=== PATIENT | male | born 1945 | race Hispanic/Latino ===

== ENCOUNTER 2018-11-17 13:19 | Emergency (ER) | payer SELFPAY ==
--- NOTE | 2018-11-17 13:57 | RAD REPORT ---
EXAM DESCRIPTION: Marylou Single View11/17/2018 1:47 pm CLINICAL HISTORY: Chest pain COMPARISON: none FINDINGS: The lungs appear clear of acute infiltrate. The heart is normal size IMPRESSION: No acute abnormalities displayed
--- NOTE | 2018-11-17 14:10 | RAD REPORT ---
EXAM DESCRIPTION: CT - Head Brain Wo Cont - 11/17/2018 1:58 pm CLINICAL HISTORY: numbness/weakness COMPARISON: None TECHNIQUE: Computed axial tomography of the head was obtained. IV contrast was not requested. All CT scans are performed using dose optimization technique as appropriate and may include automated exposure control or mA/KV adjustment according to patient size. FINDINGS: An intracranial bleed is not seen . The ventricles are normal in caliber. 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 Mild low-density areas within periventricular, deep and sub cortical white matter likely represent ischemic changes secondary to small vessel disease. Fluid within the sinuses/ mastoids is not seen. IMPRESSION: No acute intracranial abnormality is seen. If patient's symptoms persist MRI of the bra in would be recommended.
[2018-11-17 14:11] LABS: ALT/SGPT 42 U/L (12-78); AST/SGOT 66 U/L (15-37); Albumin 3.2 g/dL (3.4-5.0); Alkaline Phosphatase 71 U/L (45-117); BUN Blood Urea Nitrogen 19 mg/dL (7-18); Bicarbonate 29 mmol/L (21-32); Bilirubin Direct 0.2 mg/dL (0-0.2); Bilirubin Total 0.4 mg/dL (0.2-1.0); Glucose Level 131 mg/dL (74-106); Magnesium 1.6 mg/dL (1.8-2.4); NT PRO-BNP 66 pg/mL (<125); Potassium 4.1 mmol/L (3.5-5.1); Protein, Total 7.6 g/dL (6.4-8.2); Sodium Level 136 mmol/L (136-145); Troponin (Emerg Dept Use Only) 0.04 ng/mL (0.0-0.045)
[2018-11-17 14:14] LABS: Absolute Monocytes 0.5 K/uL (0.1-1.3); Absolute Neutrophil 2.1 K/uL (1.8-8.0); Basophils % 0.7 % (0-1.3); Eosinophils % 0.8 % (0-4.4); Hematocrit 52.6 % (39.6-49.0); Monocytes % 12.7 % (3.3-12.3); RBC Red Blood Cell Count 5.11 M/uL (4.33-5.43)
[2018-11-17 14:15] LABS: Protime INR 1.02
[2018-11-17] MEDS ORDERED: MAGNESIUM SULFATE 1 gm IVPB 1 GM/100 ML BAG IV ONE (14:45)
[2018-11-17] MEDS ORDERED: NA CHLORIDE 0.9% 1,000 ML ONE (15:25)
--- NOTE | 2018-11-17 15:59 | ER ---
Nurse's Notes [facility] Name: Cristobal Napier Age: 73 yrs Sex: Male : 1945 Arrival Date: 11/17/2018 Time: 13:24 Bed 14 Private MD: Diagnosis: Weakness;Volume depletion Presentation: 11/17 13:16 Presenting complaint: EMS states: Pt. c/o generalized weakness for the past 6 days and rb1 feeling fatigued. Denies pain. BP 126/80, P 88, T 98.0, 99% RA, BS 120. NKA. History of diabetes. Takes Vitamin B shots, Metformin, and VItamin B PO. Onset of symptoms is unknown. Risk Assessment: Do you want to hurt yourself or someone else? Patient reports no desire to harm self or others. Initial Sepsis Screen: Does the patient meet any 2 criteria? No. Patient's initial sepsis screen is negative. Does the patient have a suspected source of infection? No. Patient's initial sepsis screen is negative. Care prior to arrival: None. 13:16 Method Of Arrival: EMS: [facility] 13:16 Acuity: LEO 3 rb1 13:16 Transition of care: patient was not received from another setting of care. rb1 Triage Assessment: 13:16 General: Appears in no apparent distress. comfortable, Behavior is calm, cooperative, rb1 Reports fatigue for x 6 days. Denies fever, feeling ill. Pain: Denies pain. Neuro: Level of Consciousness is awake, alert, obeys commands, Oriented to person, place, time, situation. Neuro: Reports weakness in generalized since x 6 days. Cardiovascular: Capillary refill < 3 seconds is brisk in bilateral fingers. Respiratory: Airway is patent Respiratory effort is even, unlabored, Respiratory pattern is regular, symmetrical. GI: No signs and/or symptoms were reported involving the gastrointestinal system. : No signs and/or symptoms were reported regarding the genitourinary system. Derm: Skin is dry, Skin is normal, Skin temperature is warm. Historical: - Allergies: 13:16 No Known Allergies; rb1 - Home Meds: 13:16 Vitamin B [Active]; rb1 13:16 metformin 1,000 mg oral tab 1 tab 2 times per day [Active]; Vitamin B 12 Shots 1 ml 1 rb1 ml monthly [Active]; cyclobenzaprine 10 mg Oral tab 1 tab 2 times per day [Active]; folic acid 1 mg Oral tab 1 tab once daily [Active]; aspirin 81 mg Oral chew 1 tab once daily [Active]; glipizide 10 mg Oral tab 0.5 tab 2 times per day [Active]; Areds 2 [Active]; - PMHx: 13:16 Diabetes - NIDDM; rb1 - PSHx: 13:16 cataract; Appendectomy; Tonsillectomy; Bullets removed from leg; Dental Implants; rb1 - Immunization history:: Flu vaccine is not up to date. - Social history:: Smoking status: Patient uses tobacco products, smokes one-half pack cigarettes per day. - Ebola Screening: : Patient negative for fever greater than or equal to 101.5 degrees Fahrenheit, and additional compatible Ebola Virus Disease symptoms. Screenin:16 Abuse screen: Denies threats or abuse. Nutritional screening: No deficits noted. rb1 Tuberculosis screening: No symptoms or risk factors identified. Fall Risk No fall in past 12 months (0 pts). Secondary diagnosis (15 points) weakness. IV access (20 points). Ambulatory Aid- None/Bed Rest/Nurse Assist (0 pts). Gait- Weak (10 pts.). Mental Status- Oriented to own ability (0 pts). Total Garber Fall Scale indicates High Risk Score (45 or more points). Fall prevention measures have been instituted. Side Rails Up X 2 Placed Close to Nursing Station 1:1 Attendant Assigned Frequent Obs/Assessments Occuring Family Present and informed to notify staff if the need to leave the bedside As available patient and family educated on Fall Prevention Program and Strategies. Assessment: 13:16 General: See triage assessment. rb1 14:15 Reassessment: Patient appears in no apparent distress at this time. No changes from rb1 previously documented assessment. Family at bedside. 15:15 Reassessment: Patient appears in no apparent distress at this time. Patient and/or rb1 family updated on plan of care and expected duration. Pain level reassessed. Patient is alert, oriented x 3, equal unlabored respirations, skin warm/dry/pink. Patient denies pain at this time. 16:15 Reassessment: Patient appears in no apparent distress at this time. No changes from rb1 previously documented assessment. Discharge pending due to IV fluids infusing. Educated pt. to leave his arm straight, IV was put on a pump to finish the infusion. Provider wants the pt. to receive all the fluids before leaving. Vital Signs: 13:16 BP 133 / 83; Pulse 73; Resp 17; Temp 97.5(O); Pulse Ox 98% on R/A; Weight 62.6 kg (R); rb1 Height 5 ft. 7 in. (170.18 cm) (R); Pain 0/10; 14:34 BP 129 / 82 Supine; Pulse 71; Resp 12; Pulse Ox 99% on R/A; dh3 14:36 BP 112 / 94 Sitting; Pulse 80; Resp 23; Pulse Ox 99% on R/A; dh3 14:38 BP 108 / 74 Standing; Pulse 95; Resp 21; Pulse Ox 98% on R/A; dh3 15:33 BP 120 / 73; Pulse 79; Resp 16; Pulse Ox 99% on R/A; Pain 0/10; rb1 16:30 BP 131 / 88; Pulse 67; Resp 24; Pulse Ox 100% ; rb1 13:16 Body Mass Index 21.61 (62.60 kg, 170.18 cm) rb1 16:30 pt. was laughing and talking with familly rb1 ED Course: 13:16 Arm band placed on right wrist. rb1 13:16 Patient has correct armband on for positive identification. Bed in low position. Call rb1 light in reach. Side rails up X 1. equipment monitor phototypesetting on. Pulse ox on. NIBP on. Warm blanket given. Pillow given. 13:24 Patient arrived in ED. rb1 13:25 [facility]aim[facility] Victoria [facility]C [facility] kb 13:25 Javy Chavez MD is Attending Physician. kb 13:37 Triage completed. rb1 13:39 April Traore, RN is Primary Nurse. rb1 13:41 Initial lab(s) drawn, by ar, sent to lab. Inserted saline lock: 20 gauge in right dh3 antecubital area, using aseptic technique. Blood collected. 13:47 XRAY Chest (1 view) In Process Unspecified. EDMS 13:[address] via stretcher. eh 13:55 CT completed. Patient tolerated procedure well. eh 13:58 CT Head Brain wo Cont In Process Unspecified. EDMS 14:00 Patient moved back from CT. eh 14:32 EKG done, by ED staff, reviewed by Saiam ROLAND. 3 14:44 Flu and/or RSV swab sent to lab. lt1 16:58 No provider procedures requiring assistance completed. IV discontinued, intact, rb1 bleeding controlled, No redness/swelling at site. Pressure dressing applied. Administered Medications: 14:45 Drug: Magnesium Sulfate 1 grams Route: IVPB; Infused Over: 1 hrs; Site: right rb1 antecubital; 15:18 Drug: NS 0.9% 1000 ml Route: IV; Rate: 1000 ml; Site: right antecubital; rb1 16:43 Follow up: IV Status: Completed infusion rb1 Outcome: 15:59 Discharge ordered by . reinaldo 16:58 Patient left the ED. rb1 16:58 Discharged to home via wheelchair, with family. rb1 16:58 Condition: stable 16:58 Discharge instructions given to patient, Instructed on discharge instructions, follow up and referral plans. Demonstrated understanding of instructions, follow-up care, Prescriptions given X none Signatures: Dispatcher [employer] EDMS Saima Victoria, JONATHONC ONLINE MERCHANDISING SPECIALIST-Hakan Calhoun Rebecca, RN RN rb1 Carolin Wiley 3 Teresa Worthy lt1 Corrections: (The following items were deleted from the chart) 14:50 13:16 Allergies: No Known Allergies; rb1 rb1 14:50 13:16 Home Meds: Metformin Oral; rb1 rb1 14:50 13:16 Home Meds: Vitamin B 12 Shots; rb1 rb1 19:38 17:19 Patient left the ED. rb1 rb1
--- NOTE | 2018-11-17 15:59 | EDPHYS ---
Physician Documentation [facility] Name: Cristobal Napier Age: 73 yrs Sex: Male : 1945 Arrival Date: 11/17/2018 Time: 13:24 Bed 14 Private MD: ED Physician Javy Chavez HPI: 11/17 14:56 This 73 yrs old Male presents to ER via EMS with complaints of General kb Weakness. 14:56 The patient presents with generalized weakness. Onset: The symptoms/episode kb began/occurred 7 day(s) ago. Context: occurred at home, occurred while the patient was at rest, just prior to the episode the patient experienced no apparent symptoms. Modifying factors: The symptoms are alleviated by nothing, the symptoms are aggravated by nothing. Associated signs and symptoms: The patient has no apparent associated signs or symptoms. Severity of symptoms: At their worst the symptoms were mild moderate in the emergency department the symptoms are unchanged. Patient's baseline: Neuro: alert and fully oriented, Motor: no deficits, Ambulation: walks without assistance, Speech: normal. The patient has not experienced similar symptoms in the past. The patient has not recently seen a physician. Pt reports weakness for 7 days. Denies any other symptoms including chest pain or shortness of breath. States he feels drunk when he standing up. States he did not want to come to the ER, was going to go [facility] [place] [facility] for symptoms but daughter made him come. . Historical: - Allergies: 13:16 No Known Allergies; rb1 - Home Meds: 13:16 Vitamin B [Active]; rb1 13:16 metformin 1,000 mg oral tab 1 tab 2 times per day [Active]; Vitamin B 12 Shots 1 ml 1 rb1 ml monthly [Active]; cyclobenzaprine 10 mg Oral tab 1 tab 2 times per day [Active]; folic acid 1 mg Oral tab 1 tab once daily [Active]; aspirin 81 mg Oral chew 1 tab once daily [Active]; glipizide 10 mg Oral tab 0.5 tab 2 times per day [Active]; Areds 2 [Active]; - PMHx: 13:16 Diabetes - NIDDM; rb1 - PSHx: 13:16 cataract; Appendectomy; Tonsillectomy; Bullets removed from leg; Dental Implants; rb1 - Immunization history:: Flu vaccine is not up to date. - Social history:: Smoking status: Patient uses tobacco products, smokes one-half pack cigarettes per day. - Ebola Screening: : Patient negative for fever greater than or equal to 101.5 degrees Fahrenheit, and additional compatible Ebola Virus Disease symptoms. ROS: 14:55 Constitutional: Negative for fever, chills, and weight loss, ENT: Negative for injury, kb pain, and discharge, Neck: Negative for injury, pain, and swelling, Cardiovascular: Negative for chest pain, palpitations, and edema, Respiratory: Negative for shortness of breath, cough, wheezing, and pleuritic chest pain, Abdomen/GI: Negative for abdominal pain, nausea, vomiting, diarrhea, and constipation, Back: Negative for injury and pain, MS/Extremity: Negative for injury and deformity, Skin: Negative for injury, rash, and discoloration. 14:55 Neuro: Positive for weakness. Exam: 14:55 Constitutional: This is a well developed, well nourished patient who is awake, alert, kb and in no acute distress. Head/Face: Normocephalic, atraumatic. ENT: Nares patent. No nasal discharge, no septal abnormalities noted. Tympanic membranes are normal and external auditory canals are clear. Oropharynx with no redness, swelling, or masses, exudates, or evidence of obstruction, uvula midline. Mucous membranes moist. Neck: Trachea midline, no thyromegaly or masses palpated, and no cervical lymphadenopathy. Supple, full range of motion without nuchal rigidity, or vertebral point tenderness. No Meningismus. Chest/axilla: Normal chest wall appearance and motion. Nontender with no deformity. No lesions are appreciated. Cardiovascular: Regular rate and rhythm with a normal S1 and S2. No gallops, murmurs, or rubs. Normal PMI, no JVD. No pulse deficits. Respiratory: Lungs have equal breath sounds bilaterally, clear to auscultation and percussion. No rales, rhonchi or wheezes noted. No increased work of breathing, no retractions or nasal flaring. Abdomen/GI: Soft, non-tender, with normal bowel sounds. No distension or tympany. No guarding or rebound. No evidence of tenderness throughout. Skin: Warm, dry with normal turgor. Normal color with no rashes, no lesions, and no evidence of cellulitis. MS/ Extremity: Pulses equal, no cyanosis. Neurovascular intact. Full, normal range of motion. Neuro: Awake and alert, GCS 15, oriented to person, place, time, and situation. Cranial nerves II-XII grossly intact. Motor strength 5/5 in all extremities. Sensory grossly intact. Cerebellar exam normal. Normal gait. Vital Signs: 13:16 BP 133 / 83; Pulse 73; Resp 17; Temp 97.5(O); Pulse Ox 98% on R/A; Weight 62.6 kg (R); rb1 Height 5 ft. 7 in. (170.18 cm) (R); Pain 0/10; 14:34 BP 129 / 82 Supine; Pulse 71; Resp 12; Pulse Ox 99% on R/A; dh3 14:36 BP 112 / 94 Sitting; Pulse 80; Resp 23; Pulse Ox 99% on R/A; dh3 14:38 BP 108 / 74 Standing; Pulse 95; Resp 21; Pulse Ox 98% on R/A; dh3 15:33 BP 120 / 73; Pulse 79; Resp 16; Pulse Ox 99% on R/A; Pain 0/10; rb1 16:30 BP 131 / 88; Pulse 67; Resp 24; Pulse Ox 100% ; rb1 13:16 Body Mass Index 21.61 (62.60 kg, 170.18 cm) rb1 16:30 pt. was laughing and talking with familly rb1 MDM: 13:25 Patient medically screened. kb 14:55 Data reviewed: vital signs, nurses notes. Data interpreted: Pulse oximetry: on room air kb is 98 %. Interpretation: normal. Counseling: I had a detailed discussion with the patient and/or guardian regarding: the historical points, exam findings, and any diagnostic results supporting the discharge/admit diagnosis, lab results, radiology results, the need for outpatient follow up, a family practitioner, to return to the emergency department if symptoms worsen or persist or if there are any questions or concerns that arise at home. 11/17 13:26 Order name: Basic Metabolic Panel; Complete Time: 14:12 kb 11/17 13:26 Order name: CBC with Diff; Complete Time: 14:34 kb 11/17 13:26 Order name: LFT's; Complete Time: 14:12 kb 11/17 13:26 Order name: Magnesium; Complete Time: 14:12 kb 11/17 13:26 Order name: NT PRO-BNP; Complete Time: 14:12 kb 11/17 13:26 Order name: PT-INR; Complete Time: 14:34 kb 11/17 13:26 Order name: Troponin (emerg Dept Use Only); Complete Time: 14:12 kb 11/17 13:26 Order name: XRAY Chest (1 view); Complete Time: 14:03 kb 11/17 13:26 Order name: EKG; Complete Time: 13:27 kb 11/17 13:26 Order name: Cardiac monitoring; Complete Time: 14:48 kb 11/17 13:26 Order name: CT Head Brain wo Cont; Complete Time: 14:12 kb 11/17 14:12 Order name: Flu; Complete Time: 15:09 kb 11/17 13:26 Order name: EKG - Nurse/Tech; Complete Time: 14:48 kb 11/17 13:26 Order name: IV Saline Lock; Complete Time: 13:44 kb 11/17 13:26 Order name: Labs collected and sent; Complete Time: 13:44 kb 11/17 13:26 Order name: O2 Per Protocol; Complete Time: 13:44 kb 11/17 13:26 Order name: O2 Sat Monitoring; Complete Time: 13:44 kb 11/17 13:26 Order name: Orthostatics; Complete Time: 14:48 kb Administered Medications: 14:45 Drug: Magnesium Sulfate 1 grams Route: IVPB; Infused Over: 1 hrs; Site: right rb1 antecubital; 15:18 Drug: NS 0.9% 1000 ml Route: IV; Rate: 1000 ml; Site: right antecubital; rb1 16:43 Follow up: IV Status: Completed infusion rb1 Disposition: 17:27 Co-signature as Attending Physician, Javy Chavez MD. rn Disposition: 11/17/18 15:59 Discharged to Home. Impression: Weakness, Volume depletion. - Condition is Stable. - Discharge Instructions: Weakness, [id number], Dehydration, Adult, [id number]. - Medication Reconciliation Form, Thank You Letter, Antibiotic Education, Prescription Opioid Use form. - Follow up: Private Physician; When: 2 - 3 days; Reason: Recheck today's complaints, Continuance of care, Re-evaluation by your physician. Follow up: Emergency Department; When: As needed; Reason: Worsening of condition. Signatures: Dispatcher [employer] EDMS Saima Victoria, CHIEF SPECIALIST LEED-C CHIEF SPECIALIST LEED-Ckb Javy Chavez MD MD rn Barber, Rebecca, RN RN rb1 Corrections: (The following items were deleted from the chart) 14:50 13:16 Allergies: No Known Allergies; rb1 rb1 14:50 13:16 Home Meds: Metformin Oral; rb1 rb1 14:50 13:16 Home Meds: Vitamin B 12 Shots; rb1 rb1 17:19 15:59 11/17/2018 15:59 Discharged to Home. Impression: Weakness; Volume depletion. rb1 Condition is Stable. Discharge Instructions: Weakness, Kxnc-ys-[id number], Dehydration, Adult, Xhpg-[id number]. Forms are Medication Reconciliation Form, Thank You Letter, Antibiotic Education, Prescription Opioid Use. Follow up: Private Physician; When: 2 - 3 days; Reason: Recheck today's complaints, Continuance of care, Re-evaluation by your physician. Follow up: Emergency Department; When: As needed; Reason: Worsening of condition. kb
--- NOTE | 2018-11-18 10:55 | EKG ---
Test Date: 2018-11-17 Test Time: 14:29:26 Boring And Filling Machine Operator: NANCY MEASUREMENT RESULTS: Intervals: Rate: 71 IN: 132 QRSD: 88 QT: 412 QTc: 447 [place]: P: 16 IN: 132 QRS: 100 T: 76 INTERPRETIVE STATEMENTS: Normal sinus rhythm Rightward axis Borderline ECG Compared to ECG 10/20/1993 04:01:00 Right-axis deviation now present Sinus bradycardia no longer present Electronically Signed On 11-18-18 10:53:46 WAITER/WAITRESS BAR by Tommy Ba
== END 2018-11-17 17:19 | disposition home or self-care (01) ==
LOC: ER 13:19
DX: E86.9 Volume depletion, unspecified (principal); R53.1 Weakness; E11.9 Type 2 diabetes mellitus without complications; F17.210 Nicotine dependence, cigarettes, uncomplicated; Z79.84 Long term (current) use of oral hypoglycemic drugs; Z79.82 Long term (current) use of aspirin; Z79.899 Other long term (current) drug therapy
CPT/HCPCS: 36415; 70450; 71045; 80048; 80076; 83735; 83880; 84484; 85025; 85610; 87804; 93005; 96361; 96374; 99285; J3475; J7030

== ENCOUNTER 2019-09-23 09:42 | Emergency (ER) | payer OTHER, SELFPAY ==
[2019-09-23] MEDS ORDERED: HYDROCODONE/APAP 5/325 MG TAB ONE (10:53)
--- NOTE | 2019-09-23 11:30 | RAD REPORT ---
EXAM DESCRIPTION: RAD - Elbow Left 3 View - 09/23/2019 11:18 am CLINICAL HISTORY: fall Fall, elbow pain COMPARISON: No comparisons FINDINGS: Transverse lucency is seen affecting the distal aspect of the humeral metaphysis with surr ounding soft tissue swelling, likely representing nondisplaced fracture. The bones are quite osteopen ic. No dislocation.
--- NOTE | 2019-09-23 11:48 | ER ---
Nurse's Notes [facility] Name: Cristobal Napier Age: 74 yrs Sex: Male : 1945 Arrival Date: 09/23/2019 Time: 09:45 Bed 19 Private MD: Diagnosis: Left Distal Humerus Fracture Presentation: 09/23 10:04 Presenting complaint: Left arm pain after fall from porch swing yesterday. Transition hb of care: patient was not received from another setting of care. Onset of symptoms was September 22, 2019. Risk Assessment: Do you want to hurt yourself or someone else? Patient reports no desire to harm self or others. Initial Sepsis Screen: Does the patient meet any 2 criteria? No. Patient's initial sepsis screen is negative. Does the patient have a suspected source of infection? No. Patient's initial sepsis screen is negative. Care prior to arrival: None. 10:04 Method Of Arrival: Ambulatory hb 10:04 Acuity: LEO 4 hb Historical: - Allergies: 10:06 No Known Allergies; hb - PMHx: 10:06 Diabetes - NIDDM; hb - PSHx: 10:06 cataract; Appendectomy; Tonsillectomy; Bullets removed from leg; Dental Implants; hb - Immunization history:: Adult Immunizations up to date. - Social history:: Smoking status: Patient uses tobacco products, smokes one-half pack cigarettes per day. - Ebola Screening: : No symptoms or risks identified at this time. Screenin:15 Abuse screen: Denies threats or abuse. Denies injuries from another. Nutritional ca1 screening: No deficits noted. Tuberculosis screening: No symptoms or risk factors identified. Fall Risk Fall in past 12 months (25 points). Ambulatory Aid- Crutches/Cane/Walker (15 pts). Assessment: 10:15 General: Appears in no apparent distress. comfortable, Behavior is calm, cooperative, ca1 appropriate for age. Pain: Complains of pain in left arm Pain currently is 10 out of 10 on a pain scale. Pain began 1 day ago. Neuro: Level of Consciousness is awake, alert, obeys commands, Oriented to person, place, time, situation, Appropriate for age. Cardiovascular: Heart tones S1 S2 present Capillary refill < 3 seconds Patient's skin is warm and dry. Respiratory: Airway is patent Respiratory effort is even, unlabored, Respiratory pattern is regular, symmetrical. GI: Abdomen is flat, non-distended, Bowel sounds present X 4 quads. Abd is soft and non tender X 4 quads. : No deficits noted. No signs and/or symptoms were reported regarding the genitourinary system. EENT: No deficits noted. No signs and/or symptoms were reported regarding the EENT system. Derm: Skin is intact, is healthy with good turgor, Skin is pink, warm \T\ dry. Musculoskeletal: Circulation, motion, and sensation intact. Capillary refill < 3 seconds, Range of motion: limited in left shoulder, left elbow and left wrist Swelling present in left hand. Injury Description: Abrasion sustained to face and left hand is scabbed, was sustained 1 day ago. 10:56 Reassessment: Xray at the bedside. ca1 11:30 Reassessment: Patient appears in no apparent distress at this time. Patient is alert, ca1 oriented x 3, equal unlabored respirations, skin warm/dry/pink. 12:23 Reassessment: Patient appears in no apparent distress at this time. Patient is alert, ca1 oriented x 3, equal unlabored respirations, skin warm/dry/pink. Vital Signs: 10:06 BP 139 / 96; Pulse 75; Resp 16; Temp 97.2; Pulse Ox 100% on R/A; Weight 58.97 kg; hb Height 5 ft. 7 in. (170.18 cm); Pain 10/10; 12:23 BP 134 / 89; Pulse 81; Resp 16 S; Pulse Ox 100% on R/A; ca1 10:06 Body Mass Index 20.36 (58.97 kg, 170.18 cm) ED Course: 09:45 Patient arrived in ED. rg4 10:05 Triage completed. hb 10:06 Nayeli Wade, RN is Primary Nurse. ca1 10:06 Arm band placed on. hb 10:07 Erick Byrne PA is PHCP. jmm 10:07 John Parker MD is Attending Physician. jmm 10:15 Patient has correct armband on for positive identification. Bed in low position. Call ca1 light in reach. Side rails up X 1. Pulse ox on. NIBP on. 10:15 No provider procedures requiring assistance completed. Patient did not have IV access ca1 during this emergency room visit. 11:27 X-ray completed. Portable x-ray completed in exam room. Patient tolerated procedure mh1 well. 11:40 Michael Wong MD is Referral Physician. frances 12:00 Orthoglass splint: posterior long arm splint applied to the left arm. capillary refill dh3 <3 seconds, viewed by Erick PEDRO. 12:00 Sling applied to left arm. dh3 Administered Medications: 10:51 Drug: [place] 5 mg-325 mg 1 tabs {Note: RASS - 0.} Route: PO; ca1 12:22 Follow up: Response: No adverse reaction; Pain is decreased; RASS: Alert and Calm (0) ca1 Outcome: 11:41 Discharge ordered by . frances 12:23 Discharged to home ambulatory, with significant other. ca1 12:23 Condition: stable 12:23 Discharge instructions given to patient, Instructed on discharge instructions, follow up and referral plans. medication usage, Demonstrated understanding of instructions, follow-up care, medications, Prescriptions given X 1. 12:24 Patient left the ED. ca1 Signatures: Erick Byrne PA PA jmm Harvey, Martha 1 Sheila Strong, RN RN Mariluz Fraser 4 Carolin Wiley 3 Nayeli Wade RN RN ca1
--- NOTE | 2019-09-23 11:48 | EDPHYS ---
Physician Documentation [facility] Name: Cristobal Napier Age: 74 yrs Sex: Male : 1945 Arrival Date: 09/23/2019 Time: 09:45 Bed 19 Private MD: ED Physician John Parker HPI: 09/23 10:12 This 74 yrs old Male presents to ER via Ambulatory with complaints of Arm jmm Injury. 10:12 The patient or guardian complains of injury, pain. Onset: The symptoms/episode jmm began/occurred acutely, 1 day(s) ago. Associated signs and symptoms: Pertinent positives: pain. This is a 74 year old male with a history of DM, that presents to the ED with complaints of left elbow pain. patient states he jumped off a swing and landed with his hands clinched against the concrete. Abrasions noted to the hands, but patient denies pain to the hand. . Historical: - Allergies: 10:06 No Known Allergies; hb - PMHx: 10:06 Diabetes - NIDDM; hb - PSHx: 10:06 cataract; Appendectomy; Tonsillectomy; Bullets removed from leg; Dental Implants; hb - Immunization history:: Adult Immunizations up to date. - Social history:: Smoking status: Patient uses tobacco products, smokes one-half pack cigarettes per day. - Ebola Screening: : No symptoms or risks identified at this time. ROS: 10:12 Constitutional: Negative for fever, chills, and weight loss, Cardiovascular: Negative jmm for chest pain, palpitations, and edema, Respiratory: Negative for shortness of breath, cough, wheezing, and pleuritic chest pain, Abdomen/GI: Negative for abdominal pain, nausea, vomiting, diarrhea, and constipation. 10:12 MS/extremity: Positive for pain. 10:12 All other systems are negative. Exam: 10:12 Head/Face: atraumatic. Eyes: EOMI, no conjunctival erythema appreciated ENT: Moist jmm Mucus Membranes Neck: Trachea midline, Supple Chest/axilla: Normal chest wall appearance and motion. Cardiovascular: Regular rate and rhythm. No edema appreciated Respiratory: Normal respirations, no respiratory distress appreciated Abdomen/GI: Non distended, soft Back: Normal ROM 10:12 Constitutional: The patient appears in no acute distress, alert, awake. 10:12 Musculoskeletal/extremity: painful ROM noted to the left elbow, no obvious deformity appreciated, full radial pulse, compartments are soft, NVI. 10:12 Skin: abrasions noted to the left hand. 10:12 Neuro: Orientation: is normal, Mentation: is normal, Memory: is normal. 10:12 Psych: Behavior/mood is pleasant, cooperative. Vital Signs: 10:06 BP 139 / 96; Pulse 75; Resp 16; Temp 97.2; Pulse Ox 100% on R/A; Weight 58.97 kg; hb Height 5 ft. 7 in. (170.18 cm); Pain 10/10; 12:23 BP 134 / 89; Pulse 81; Resp 16 S; Pulse Ox 100% on R/A; ca1 10:06 Body Mass Index 20.36 (58.97 kg, 170.18 cm) hb Procedures: 11:39 Splinting: Splint applied to left arm using Orthoglass splint, applied by tech. mike Examined by me, post splint application: neurovascular intact, 2+ distal pulses palpable, brisk capillary refill noted, Patient tolerated well. MDM: 10:12 Patient medically screened. [facility] 11:39 Data reviewed: vital signs, nurses notes. Counseling: I had a detailed discussion with frances the patient and/or guardian regarding: the historical points, exam findings, and any diagnostic results supporting the discharge/admit diagnosis, radiology results, the need for outpatient follow up, to return to the emergency department if symptoms worsen or persist or if there are any questions or concerns that arise at home. ED course: Patient advised to follow up with ortho for reevaluation. patient given strict return precautions. patient understood and agrees with the plan of care. . 09/23 10:18 Order name: Elbow Left 3 View XRAY [facility] 09/23 11:31 Order name: RAD; Complete Time: 11:33 EDMS 09/23 11:14 Order name: Posterior Elbow Splint; Complete Time: 12:11 [facility] Administered Medications: 10:51 Drug: [place] 5 mg-325 mg 1 tabs {Note: RASS - 0.} Route: PO; ca1 12:22 Follow up: Response: No adverse reaction; Pain is decreased; RASS: Alert and Calm (0) ca1 Disposition: 15:19 Co-signature as Attending Physician, John Parker MD I agree with the assessment and eulogio plan of care. Disposition: 09/23/19 11:41 Discharged to Home. Impression: Left Distal Humerus Fracture. - Condition is Stable. - Discharge Instructions: Humerus Fracture Treated With Immobilization. - Prescriptions for Ultracet 37.5- 325 mg Oral Tablet - take 1 tablet by ORAL route every 6 hours - for up to 5 days; do not exceed 8 tablets per day.; 12 tablet. - Medication Reconciliation Form, Thank You Letter, Antibiotic Education, Prescription Opioid Use form. - Follow up: Michael Wong MD; When: 2 - 3 days; Reason: Recheck today's complaints, Continuance of care, Re-evaluation by your physician. Signatures: Dispatcher [employer] EDMS John Parker MD MD cha Mickail, Joel, PA PA jmm Baxter, Heather, RN RN hb Nayeli Wade RN RN ca1 Corrections: (The following items were deleted from the chart) 12:24 11:41 09/23/2019 11:41 Discharged to Home. Impression: Left Distal Humerus Fracture. ca1 Condition is Stable. Forms are Medication Reconciliation Form, Thank You Letter, Antibiotic Education, Prescription Opioid Use. Follow up: Dr. Michael Wong; When: 2 - 3 days; Reason: Recheck today's complaints, Continuance of care, Re-evaluation by your physician. frances
[2019-09-23 12:31] VITALS: TEMP 97.2; O2SAT 100
[2019-09-23 12:32] VITALS: BP 134/89
== END 2019-09-23 12:24 | disposition home or self-care (01) ==
LOC: ER 09:42
PROC: 2W39X1Z Immobilization of Left Upper Extremity using Splint (ICD-10-PCS; principal; 2019-09-23)
DX: S42.402A Unspecified fracture of lower end of left humerus, initial encounter for closed fracture (principal); W09.1XXA Fall from playground swing, initial encounter; Y93.89 Activity, other specified; Y92.89 Other specified places as the place of occurrence of the external cause; F17.210 Nicotine dependence, cigarettes, uncomplicated; E11.9 Type 2 diabetes mellitus without complications
CPT/HCPCS: 99284

== ENCOUNTER 2020-01-14 14:21 | Emergency (ER) | payer OTHER ==
[2020-01-14 15:55] VITALS: BP 135/68; TEMP 98.2; O2SAT 99
== END 2020-01-14 15:50 | disposition home or self-care (01) ==
LOC: ER 14:21
DX: R73.9 Hyperglycemia, unspecified (principal); Z72.0 Tobacco use
CPT/HCPCS: 36415; 80048; 80076; 82947; 85025; 99283

== ENCOUNTER 2024-07-20 15:18 | Emergency (ER) | payer OTHER ==
--- OUTSIDE RECORDS SUMMARY | 2024-07-20 15:20 | XMS REPORT | Continuity of Care Document ---
Author Name Unknown Address [address] [place] [address] thconnect Address [address] [facility] [address] [place] [address] Care Team Providers Care Call Center Specialist Name Role Phone CHUN ALEXANDRA Attending Clinician Edin fuller Doctor Unassigned, [place] Attending Clinician U neelima Adkins MD, Shiva Leonardo Attending Clinician Payers Payer Name Policy Type Policy Number Effective Date Expirati on Date Source [employer] [id number] Allergies, Adverse Reactions, Alerts Allergy Name Allergy Type Status Severity Reaction(s) Onset Date Inactive Date Treating Clinician Comments Source NO KNOWN ALLERGIE S Drug Class Active [facility] Social History Social Habit Start Date Stop Date Quantity Comments Source Sex Assigned At [facility] Smoking Status Start Date Stop Date Source Unknown if ever smoked Unive [facility] Procedures Procedure Date / Time Performed Performing Clinicia n Source ASSIGNMENT OF BENEFITS 2020-10-13 14:20:10 Docto r Unassigned, [place] [facility] REFERRAL- REQUEST/RESPONSE 2020-10-05 06:01:00 Doctor Unassigned, [place] [facility] Encounters Start Date/Time End Date/Time Encounter Type Admission Type Attending Clinicians Care Facility Care Department Encounter ID Source 2020-10-13 08:00:00 2020-10-13 08:00:00 Outpatient R CHUN ALEXANDRA [facility] [id number] [facility] 2020-10-13 00:00:00 2020-10-13 00:00:00 Orders Only Doctor Unassigned, [place] [facility] [id number] [facility] 2020-10-05 00:00:00 2020-10-05 00:00:00 Orders Only Doctor Unassigned, [place] [facility] [id number] [facility] 2019-09-25 13:00:00 2019-09-25 13:15:00 Office Visit Shiva Adkins [facility] [id number] [facility]
[2024-07-20] MEDS ORDERED: NA CHLORIDE 0.9% 1,000 ML ONE (15:36)
[2024-07-20 16:02] LABS: Absolute Lymphocytes (CBC) 0.3 K/uL (0.7-4.9); Absolute Monocytes 0.2 K/uL (0.1-1.3); Absolute Neutrophil 8.2 K/uL (1.8-8.0); Basophils % 0.3 % (0-1.3); Hemoglobin 16.1 g/dL (13.6-17.9); Lymphocytes % 2.9 % (15.3-44.8); MCH 33.8 pg (27.0-35.0); MCHC 34.3 g/dL (32.0-36.0); MCV 98.5 fL (80-100); MPV 7.5 fL (7.6-11.3); Monocytes % 2.2 % (3.3-12.3); Neutrophils % 94.6 % (41.7-73.7); Platelets 207 thou/uL (152-406); RBC Red Blood Cell Count 4.77 M/uL (4.33-5.43); Red Cell Distribution Width 13.4 % (12.1-15.2)
[2024-07-20 16:22] LABS: Albumin 3.6 g/dL (3.4-5.0); Albumin/Globulin Ratio 0.9 (1.1-1.8); Anion Gap 10.3 mEq/L (5.0-15.0); Bilirubin Direct 0.3 mg/dL (0-0.2); Bilirubin Indirect, Calculated 0.7 mg/dL (0.2-0.8); Globulin 3.9 g/dL (2.3-3.5); Potassium 4.3 mEq/L (3.5-5.1); Protein, Total 7.5 g/dL (6.4-8.2); Troponin High Sensitivity 20.4 pg/mL (<58.9)
--- NOTE | 2024-07-20 16:31 | RAD REPORT ---
EXAM: CT brain without contrast HISTORY: GLF COMPARISON: None TECHNIQUE: Multiple contiguous axial images were obtained and a CT of the brain without contrast. Sag ittal and coronal reformats were performed. One or more of the following dose reduction techniques were used: Automated exposure control, adjust ment of the mA and/or kV according to patient size, and/or iterative reconstruction. FINDINGS: No evidence of hydrocephalus, intracranial hemorrhage, or extra-axial fluid collection. Mild brain atrophy with mild periventricular and deep white matter chronic microvascular ischemic ch anges present. No evidence of midline shift or areas of brain edema. The calvarium is intact. The visualized paranasal sinuses and mastoid air cells are essentially clear . IMPRESSION: No evidence of acute intracranial abnormality. EXAM: CT of the cervical spine without contrast HISTORY: Neck pain, injury GLF COMPARISON: None TECHNIQUE: Multiple contiguous axial images were obtained in a CT of the cervical spine without contr ast. Sagittal and coronal reformats were performed. FINDINGS: The vertebral bodies demonstrate normal height and alignment. No evidence of acute fracture or subluxation.. [id number]-[id number]-dwhyxkia multilevel mid and lower cervical degenerative changes. No prevertebral soft tissue swelling is seen. The posterior facets are well aligned. Normal alignment of the skull base with the cervical spine is seen. The lung apices are unremarkable. IMPRESSION: No evidence of acute osseous abnormality of the cervical spine.
--- NOTE | 2024-07-20 16:36 | RAD REPORT ---
EXAMINATION: ONE VIEW CHEST XR CLINICAL INDICATION: fall TECHNIQUE: Frontal chest projection is submitted. Examination is limited by patient positioning and t echnique. COMPARISON: 11/17/2018 FINDINGS: The lungs are diffusely emphysematous but grossly clear. The heart is upper limit of normal in size. No displaced fractures identified. IMPRESSION: COPD without an acute process suspected.
--- NOTE | 2024-07-20 17:03 | ER ---
Nurse's Notes [facility] Name: Cristobal Napier Age: 78 yrs Sex: Male : 1945 Arrival Date: 07/20/2024 Time: 15:18 Bed 15 Private MD: Diagnosis: Weakness;Other specified injuries of neck Presentation: 07/20 15:29 Chief complaint: Patient states: he fell while going outside to smoke a cigarette. kc6 cannot remember if he had LOC or hit his head. (-) blood thinners. pt reports neck pain. Coronavirus screen: At this time, the client does not indicate any symptoms associated with coronavirus-19. Ebola Screen: No symptoms or risks identified at this time. Initial Sepsis Screen: Does the patient meet any 2 criteria? HR > 90 bpm. Does the patient have a suspected source of infection? No. Patient's initial sepsis screen is negative. Risk Assessment: Do you want to hurt yourself or someone else? Patient reports no desire to harm self or others. Onset of symptoms was July 20, 2024. 15:29 Method Of Arrival: EMS: [facility] 15:29 Acuity: LEO 3 kc6 Triage Assessment: 15:30 General: Appears in no apparent distress. comfortable, well groomed, well developed, kc6 Behavior is calm, cooperative, appropriate for age. Pain: Complains of pain in posterior cervical area. EENT: No signs and/or symptoms were reported regarding the EENT system. Neuro: Level of Consciousness is awake, alert, obeys commands, Oriented to person, place, time, situation, Appropriate for age. Cardiovascular: Denies chest pain, shortness of breath, Capillary refill < 3 seconds Rhythm is sinus tachycardia. Respiratory: Airway is patent Trachea midline Respiratory effort is even, unlabored, Respiratory pattern is regular, symmetrical. GI: Reports anorexia. : No signs and/or symptoms were reported regarding the genitourinary system. Derm: No signs and/or symptoms reported regarding the dermatologic system. Skin is intact, is healthy with good turgor, Skin is pink, warm \T\ dry. Musculoskeletal: No signs and/or symptoms reported regarding the musculoskeletal system. Circulation, motion, and sensation intact. Capillary refill < 3 seconds, Range of motion: intact in all extremities. Historical: - Allergies: 15:30 No Known Allergies; kc6 - PMHx: 15:30 Diabetes - NIDDM; kc6 - Immunization history:: Adult Immunizations up to date. - Infectious Disease History:: Denies. - Social history:: Smoking status: Patient reports the use of cigarette tobacco products, denies chronic smoking, but will smoke occasionally. Screenin:32 [facility] ED Fall Risk Assessment (Adult) History of falling in the last 3 months, kc6 including since admission Yes- fall prone (multiple falls) (3 pts) Confusion or Disorientation No (0 pts) Intoxicated or Sedated No (0 pts) Impaired Gait Yes (1 pt) Mobility Assist Device Used Yes (1 pt) Altered Elimination No (0 pt) Score/Fall Risk Level 3 or more points = High Risk Oriented to surroundings, Maintained a safe environment, Educated pt \T\ family on fall prevention, incl call for assistance when getting out of bed. Abuse screen: Denies threats or abuse. Denies injuries from another. Nutritional screening: No deficits noted. Tuberculosis screening: No symptoms or risk factors identified. Assessment: 15:32 Reassessment: please see triage. kc6 16:09 Reassessment: to CT via stretcher. ll1 16:24 Reassessment: No changes from previously documented assessment. Patient and/or family ll1 updated on plan of care and expected duration. Pain level reassessed. back from CT. 16:34 Reassessment: No changes from previously documented assessment. Patient and/or family ll1 updated on plan of care and expected duration. Pain level reassessed. 16:53 Reassessment: Patient appears in no apparent distress at this time. No changes from [facility] previously documented assessment. Patient and/or family updated on plan of care and expected duration. Pain level reassessed. Patient is alert, oriented x 3, equal unlabored respirations, skin warm/dry/pink. Vital Signs: 15:29 BP 114 / 81; Pulse 114; Resp 18 S; Temp 98.6(O); Pulse Ox 96% on R/A; Weight 63.5 kg kc6 (M); Height 5 ft. 7 in. (R); 15:56 BP 110 / 74; Pulse 108; Resp 20 S; Pulse Ox 96% on R/A; kc6 16:33 BP 108 / 72; Pulse 92; Resp 18; Pulse Ox 99% ; ll1 16:54 BP 117 / 68; Pulse 85; Resp 17 S; Pulse Ox 99% on R/A; kc6 15:29 Body Mass Index 21.93 (63.50 kg, 170.18 cm) kc6 ED Course: 15:23 Patient arrived in ED. ec2 15:23 Stef Herbert MD is Attending Physician. ec2 15:29 Marley Fall RN is Primary Nurse. kc6 15:30 Triage completed. kc6 15:30 Arm band placed on. kc6 15:32 Patient has correct armband on for positive identification. Bed in low position. Call kc6 light in reach. Side rails up X2. drafter apprentice on. Pulse ox on. NIBP on. Door closed. Noise minimized. Lights dimmed. Pillow given. 15:32 Patient maintains SpO2 saturation greater than 95% on room air. kc6 15:55 Inserted saline lock: 20 gauge in right forearm, using aseptic technique. Blood kc6 collected. Flushed with 10 mL NS. 16:19 CT Head C Spine In Process Unspecified. EDMS 16:33 XRAY Chest (1 view) In Process Unspecified. EDMS 17:28 No provider procedures requiring assistance completed. IV discontinued, intact, kc6 bleeding controlled, No redness/swelling at site. Pressure dressing applied. Administered Medications: 15:55 Drug: NS 0.9% IV 1000 ml IV at 1 bolus Per protocol; to be given as a bolus over 60 kc6 minutes Route: IV; Rate: 1 bolus; Site: right forearm; 17:27 Follow up: Response: No adverse reaction; IV Status: Completed infusion; IV Intake: kc6 1000ml Medication: 17:28 VIS not applicable for this client. kc6 Intake: 17:27 IV: 1000ml; Total: 1000ml. kc6 Outcome: 17:02 Discharge ordered by . ec2 17:28 Discharged to home via wheelchair, with family, with significant other, kc6 17:28 Condition: good 17:28 Discharge instructions given to patient, family, significant other, Instructed on discharge instructions, follow up and referral plans. Demonstrated understanding of instructions, follow-up care, 17:28 Patient left the ED. kc6 Signatures: Dispatcher [employer] EDMS Jeniffer Palmer RN RN 1 Marley Fall RN RN kc6 Herbert, Stef, MD MD ec2
--- NOTE | 2024-07-20 17:03 | EDPHYS ---
Physician Documentation [facility] Name: Cristobal Napier Age: 78 yrs Sex: Male : 1945 Arrival Date: 07/20/2024 Time: 15:18 Bed 15 Private MD: ED Physician Stef Herbert HPI: 07/20 15:43 This 78 yrs old Male presents to ER via EMS with complaints of Fall Injury. ec2 15:43 Patient arrives today for evaluation of recurrent falls and neck pain. Patient also ec2 with generalized weakness. Patient reports no recent illnesses, no fevers or chills, no nausea or vomiting. Patient states that he has frequent falls and the fall aspect is not new.. Historical: - Allergies: 15:30 No Known Allergies; kc6 - PMHx: 15:30 Diabetes - NIDDM; kc6 - Immunization history:: Adult Immunizations up to date. - Infectious Disease History:: Denies. - Social history:: Smoking status: Patient reports the use of cigarette tobacco products, denies chronic smoking, but will smoke occasionally. ROS: 15:43 Constitutional: as per hpi ec2 Exam: 15:43 Constitutional: GEN: NAD Head: atraumatic Eyes: EOMI Ears: External ears are ec2 normal. CV: Tachycardia LUNGS: no respiratory distress ABD: non-distended, soft, nontender, not guarding, not rigid SKIN: no evidence of rashes MSK: no evidence of trauma Vital Signs: 15:29 BP 114 / 81; Pulse 114; Resp 18 S; Temp 98.6(O); Pulse Ox 96% on R/A; Weight 63.5 kg kc6 (M); Height 5 ft. 7 in. (R); 15:56 BP 110 / 74; Pulse 108; Resp 20 S; Pulse Ox 96% on R/A; kc6 16:33 BP 108 / 72; Pulse 92; Resp 18; Pulse Ox 99% ; ll1 16:54 BP 117 / 68; Pulse 85; Resp 17 S; Pulse Ox 99% on R/A; kc6 15:29 Body Mass Index 21.93 (63.50 kg, 170.18 cm) kc6 MDM: 15:43 Data reviewed: vital signs. ED course: Patient arrives today for evaluation of ec2 generalized weakness as well as recurrent falls. Examination remarkable for well-appearing nontoxic individuals otherwise in no acute distress. Will obtain CT scan of the head and C-spine given the patient's age. Will obtain lab work as well given the patient's tachycardia. . 15:59 ED course: EKG independently reviewed and interpreted by me, shows sinus tachycardia, ec2 rate 109, no acute ST segment elevations, intervals are nonactionable. . 16:28 ED course: Metabolic profile is reassuring. CBC reassuring. LFTs are nonactionable. ec2 Troponin within normal ranges. . 17:01 ED course: Chest x-ray shows no acute intrathoracic process. CT scan of the head and ec2 C-spine shows no acute traumatic process. On reassessment patient with improving tachycardia. Patient without any new complaints or evidence of acute pathology. Will discharge home. Return precautions given. . 17:02 Patient medically screened. ec2 10 15:32 Order name: Basic Metabolic Panel; Complete Time: 16:28 ec2 07/20 15:32 Order name: CBC with Diff; Complete Time: 16:28 ec2 07/20 15:32 Order name: Troponin HS; Complete Time: 16:28 ec2 07/20 15:32 Order name: LFT's; Complete Time: 16:28 ec2 07/20 15:32 Order name: XRAY Chest (1 view); Complete Time: 17:01 ec2 07/20 15:32 Order name: CT Head C Spine; Complete Time: 17:01 ec2 07/20 15:32 Order name: EKG; Complete Time: 15:33 ec2 07/20 15:32 Order name: Cardiac monitoring; Complete Time: 15:37 ec2 07/20 15:32 Order name: EKG - Nurse/Tech; Complete Time: 15:55 ec2 07/20 15:32 Order name: IV Saline Lock; Complete Time: 15:55 ec2 07/20 15:32 Order name: Labs collected and sent; Complete Time: 15:55 ec2 07/20 15:32 Order name: O2 Per Protocol; Complete Time: 15:37 ec2 07/20 15:32 Order name: O2 Sat Monitoring; Complete Time: 15:37 ec2 07/20 16:29 Order name: Vital Signs; Complete Time: 16:34 ec2 Administered Medications: 15:55 Drug: NS 0.9% IV 1000 ml IV at 1 bolus Per protocol; to be given as a bolus over 60 kc6 minutes Route: IV; Rate: 1 bolus; Site: right forearm; 17:27 Follow up: Response: No adverse reaction; IV Status: Completed infusion; IV Intake: kc6 1000ml Disposition Summary: 07/20/24 17:02 Discharge Ordered Notes: Location: Home ec2 Condition: Stable ec2 Diagnosis - Weakness ec2 - Other specified injuries of neck ec2 Followup: ec2 - With: Private Physician - When: - Reason: Re-evaluation by your physician Discharge Instructions: - Discharge Summary Sheet ec2 - Weakness ec2 Forms: - Medication Reconciliation Form ec2 - Antibiotic Education ec2 - Prescription Opioid Use ec2 - Patient Portal Instructions ec2 - Leadership Thank You Letter ec2 Signatures: Dispatcher [employer] Marley Woods RN RN kc6 Stef Herbert MD MD ec2 Corrections: (The following items were deleted from the chart) 15:33 15:33 BASIC METABOLIC PANEL+C.LAB.BRZ ordered. EDMS EDMS 15:33 15:33 CBC+H.LAB.BRZ ordered. EDMS EDMS 15:33 15:33 Troponin High Sensitivity+C.LAB.BRZ ordered. EDMS EDMS 15:33 15:33 Urinalysis W/Microscopic+U.LAB.BRZ ordered. EDMS EDMS 15:33 15:33 HEPATIC FUNCTION+C.LAB.BRZ ordered. EDMS EDMS
[2024-07-20 20:56] VITALS: TEMP 98.6
[2024-07-20 20:58] VITALS: O2SAT 99
[2024-07-20 20:59] VITALS: BP 117/68
== END 2024-07-20 17:28 | disposition home or self-care (01) ==
LOC: ER 15:18
DX: R53.1 Weakness (principal); S19.89XA Other specified injuries of other specified part of neck, initial encounter; W18.30XA Fall on same level, unspecified, initial encounter; E11.9 Type 2 diabetes mellitus without complications; F17.210 Nicotine dependence, cigarettes, uncomplicated
CPT/HCPCS: 93005; 85025; 80048; 36415; 80076; 84484; 70450; 72125; 71045; J7030

== ENCOUNTER 2024-08-12 13:33 | Emergency (ER) | payer OTHER ==
--- OUTSIDE RECORDS SUMMARY | 2024-08-12 13:36 | XMS REPORT | Continuity of Care Document ---
Author Name Unknown Address [address] [place] [address] thconnect Address [address] [facility] [address] [place] [address] Care Team Providers Care Virtualization Consultant Name Role Phone CHUN ALEXANDRA Attending Clinician Edin fuller Doctor Unassigned, [place] Attending Clinician U neelima dAkins MD, Shiva Leonardo Attending Clinician Payers Payer Name Policy Type Policy Number Effective Date Expirati on Date Source [employer] [id number] Allergies, Adverse Reactions, Alerts Allergy Name Allergy Type Status Severity Reaction(s) Onset Date Inactive Date Treating Clinician Comments Source NO KNOWN ALLERGIE S Drug Class Active [facility] Social History Social Habit Start Date Stop Date Quantity Comments Source Sex Assigned At [facility] Smoking Status Start Date Stop Date Source Unknown if ever smoked Unive [facility] Procedures Procedure Date / Time Performed Performing Clinicia n Source ASSIGNMENT OF BENEFITS 2020-10-13 14:20:10 Docto r Unassigned, [place] [facility] REFERRAL- REQUEST/RESPONSE 2020-10-05 06:01:00 Doctor Unassigned, [place] [facility] Encounters Start Date/Time End Date/Time Encounter Type Admission Type Attending Clinicians Care Facility Care Department Encounter ID Source 2020-10-13 08:00:00 2020-10-13 08:00:00 Outpatient R CHUN ALEXANDRA [facility] [id number] [facility] 2020-10-13 00:00:00 2020-10-13 00:00:00 Orders Only Doctor Unassigned, [place] [facility] [id number] [facility] 2020-10-05 00:00:00 2020-10-05 00:00:00 Orders Only Doctor Unassigned, [place] [facility] [id number] [facility] 2019-09-25 13:00:00 2019-09-25 13:15:00 Office Visit Shiva Adkins [facility] [id number] [facility]
[2024-08-12 14:34] LABS: Absolute Eosinophils 0.1 K/uL (0-0.5); Absolute Lymphocytes (CBC) 1.7 K/uL (0.7-4.9); Absolute Monocytes 0.8 K/uL (0.1-1.3); Absolute Neutrophil 5.8 K/uL (1.8-8.0); Basophils % 0.3 % (0-1.3); Hematocrit 44.3 % (39.6-49.0); Lymphocytes % 20.5 % (15.3-44.8); MCH 33.3 pg (27.0-35.0); MCHC 33.9 g/dL (32.0-36.0); MCV 98.3 fL (80-100); MPV 7.4 fL (7.6-11.3); Monocytes % 9.2 % (3.3-12.3); Platelets 269 thou/uL (152-406); RBC Red Blood Cell Count 4.51 M/uL (4.33-5.43); Red Cell Distribution Width 13.6 % (12.1-15.2)
[2024-08-12 14:53] LABS: Albumin 3.3 g/dL (3.4-5.0); Albumin/Globulin Ratio 0.7 (1.1-1.8); Globulin 4.8 g/dL (2.3-3.5); Protein, Total 8.1 g/dL (6.4-8.2)
--- NOTE | 2024-08-12 15:09 | RAD REPORT ---
Exam:Shoulder Left 2+ Views HISTORY: Left shoulder pain FINDINGS: Moderately to markedly displaced fracture mid to distal left clavicle. No dislocation seen
--- NOTE | 2024-08-12 15:12 | RAD REPORT ---
Exam:Humerus Left CLINICAL HISTORY: Left arm pain FINDINGS: Prominent lucency distal humerus could represent a prominent trabecula or nondisplaced fracture. If c linically indicated further evaluation with dedicated x-rays of the left elbow could be obtained. Osteoporosis
--- NOTE | 2024-08-12 15:27 | RAD REPORT ---
EXAMINATION: CT HEAD WITHOUT CONTRAST CT CERVICAL SPINE WITHOUT CONTRAST CLINICAL INDICATION: Head and neck injury status post fall. Head and neck pain TECHNIQUE: Axial CT images from the skull base to the vertex without intravenous contrast. Axial CT i mages through the cervical spine were obtained without intravenous contrast. Sagittal and coronal reformatted images were created from the data set. Coronal and sagittal reformatted images were creat ed from the data set. One or more of the following dose reduction techniques were used: Automated exposure control, adjustment of the mA and/or kV according to patient size, and/or iterative reconstr uction. Unless otherwise specified, incidental findings do not require dedicated imaging follow-up. [id number]. Comparison: July 20, 2024 FINDINGS: Intracranial bleed not noted. Ventricles are normal in caliber. Mild low-density within periventricular, deep and subcortical white matter probably ischemic. No extra-axial fluid collection. No fluid within the sinuses/mastoids No fracture or dislocation is seen involving the cervical spine. IMPRESSION: No acute intracranial abnormality noted A cervical fracture is not seen. If the patient continues to have symptoms to suggest acute VIDEO INTERN/spinal pathology then MRI would be rec ommended
--- NOTE | 2024-08-12 15:43 | RAD REPORT ---
EXAM: Chest Abdomen Pelvis W Cont CLINICAL INDICATION: Chest and abdominal pain status post fall TECHNIQUE: CT chest, abdomen and pelvis was performed, with 100 cc Isovue-300 IV contrast, as per de partment protocol. Axial, sagittal and coronal reconstructions were obtained. One or more of the following dose reduction techniques were used: Automated exposure control, adjustment of the mA and/o r kV according to the patient size, and/or iterative reconstruction. Unless otherwise specified, incidental findings do not require dedicated imaging follow-up. [id number]. Oral contrast not given. This limits evaluation of the bowel. COMPARISON: None FINDINGS: Comminuted moderately to markedly displaced fracture mid to distal left clavicle. Nondisplaced subacute left 3rd rib fracture A pulmonary contusion not seen. No mediastinal hematoma noted No pleural effusion.. No pericardial effusion Liver, spleen, pancreas, adrenals, kidneys and bladder do not demonstrate an acute traumatic injury. There is no evidence of diverticulitis. Small benign fatty left renal lesion. Small right renal cyst. Small bladder diverticulum. IMPRESSION: Comminuted moderately to markedly displaced fracture mid to distal left clavicle. Portions of the left subclavian and left axial vein are not well imaged. Venous ultrasound is recomme nded.
[2024-08-12] MEDS ORDERED: FENTANYL CITR 100 MCG/2 ML ONE (16:51)
[2024-08-12] MEDS ORDERED: ONDANSETRON 4 MG/2 ML VIAL ONE (16:52)
[2024-08-12] MEDS ORDERED: NA CHLORIDE 0.9% 250 ML ONE (16:52)
--- NOTE | 2024-08-12 17:49 | RAD REPORT ---
EXAMINATION: UPPER EXTREMITY VENOUS UNILATE CLINICAL INDICATION: Left Arm pain TECHNIQUE: Complete bilateral duplex sonography of the left upper extremity veins was performed. The examination included compression for vein patency, color Doppler imaging and flow augmentation in response to distal compression of the internal jugular,, subclavian, axillary, brachial, radial, ulna r, cephalic and basilic veins .Grayscale, color and spectral analysis performed on all vessels FINDINGS: Echogenic material consistent with thrombus is present within the left internal jugular, left axillar y, basilic and left brachial left veins. Little blood flow visualized. Veins are generally noncompressible Subclavian, radial and ulnar veins are patent. Color Doppler demonstrates good flow. IMPRESSION: Acute thrombus left internal jugular, left axillary, left brachial and left basilic veins
--- NOTE | 2024-08-12 17:54 | EDPHYS ---
Physician Documentation [facility] Name: Cristobal Napier Age: 78 yrs Sex: Male : 1945 Arrival Date: 08/12/2024 Time: 13:33 Bed 9 Private MD: ED Physician John Parker HPI: 08/12 16:46 This 78 yrs old Male presents to ER via Wheelchair with complaints of Fall eulogio Injury. 16:46 Details of fall: The patient fell from an upright position, while standing. Onset: The eulogio symptoms/episode began/occurred 4 day(s) ago. Associated injuries: The patient sustained left supraclavicular area, contusion, decreased range of motion, obvious fracture, painful injury, swelling. Severity of symptoms: At their worst the symptoms were moderate, in the emergency department the symptoms are unchanged. The patient has not experienced similar symptoms in the past. Historical: - Allergies: 13:57 No Known Allergies; aa5 - PMHx: 13:57 Diabetes - NIDDM; aa5 - Immunization history:: Adult Immunizations unknown. - Infectious Disease History:: Denies. - Social history:: Smoking status: Patient reports the use of cigarette tobacco products. ROS: 16:46 Constitutional: Negative for fever, chills, and weight loss, Eyes: Negative for injury, eulogio pain, redness, and discharge, ENT: Negative for injury, pain, and discharge, Neck: Negative for injury, pain, and swelling, Cardiovascular: Negative for chest pain, palpitations, and edema, Respiratory: Negative for shortness of breath, cough, wheezing, and pleuritic chest pain, Abdomen/GI: Negative for abdominal pain, nausea, vomiting, diarrhea, and constipation, Back: Negative for injury and pain, : Negative for injury, bleeding, discharge, and swelling, Neuro: Negative for headache, weakness, numbness, tingling, and seizure, Psych: Negative for depression, anxiety, suicide ideation, homicidal ideation, and hallucinations, Allergy/Immunology: Negative for hives, rash, and allergies, Endocrine: Negative for neck swelling, polydipsia, polyuria, polyphagia, and marked weight changes, Hematologic/Lymphatic: Negative for swollen nodes, abnormal bleeding, and unusual bruising, 16:46 MS/extremity: Positive for decreased range of motion, ecchymosis, pain, swelling, tenderness, of the chest and left supraclavicular area, Exam: 16:46 Constitutional: This is a well developed, well nourished patient who is awake, alert, eulogio and in no acute distress. Head/Face: Normocephalic, atraumatic. Eyes: Pupils equal round and reactive to light, extra-ocular motions intact. Lids and lashes normal. Conjunctiva and sclera are non-icteric and not injected. Cornea within normal limits. Periorbital areas with no swelling, redness, or edema. ENT: Nares patent. No nasal discharge, no septal abnormalities noted. Tympanic membranes are normal and external auditory canals are clear. Oropharynx with no redness, swelling, or masses, exudates, or evidence of obstruction, uvula midline. Mucous membranes moist. Neck: Trachea midline, no thyromegaly or masses palpated, and no cervical lymphadenopathy. Supple, full range of motion without nuchal rigidity, or vertebral point tenderness. No Meningismus. Cardiovascular: Regular rate and rhythm with a normal S1 and S2. No gallops, murmurs, or rubs. Normal PMI, no JVD. No pulse deficits. Respiratory: Lungs have equal breath sounds bilaterally, clear to auscultation and percussion. No rales, rhonchi or wheezes noted. No increased work of breathing, no retractions or nasal flaring. Abdomen/GI: Soft, non-tender, with normal bowel sounds. No distension or tympany. No guarding or rebound. No evidence of tenderness throughout. Back: No spinal tenderness. No costovertebral tenderness. Full range of motion. Male : Normal genitalia with no discharge or lesions. Skin: Warm, dry with normal turgor. Normal color with no rashes, no lesions, and no evidence of cellulitis. Neuro: Awake and alert, GCS 15, oriented to person, place, time, and situation. Cranial nerves II-XII grossly intact. Motor strength 5/5 in all extremities. Sensory grossly intact. Cerebellar exam normal. Normal gait. Psych: Awake, alert, with orientation to person, place and time. Behavior, mood, and affect are within normal limits. 16:46 Chest/axilla: Inspection: ecchymosis, that is moderate, of the left supraclavicular area and left clavicle Axilla: are normal, no acute changes, Lymph nodes: lymphadenopathy is not appreciated, 16:46 Musculoskeletal/extremity: ROM: full passive range of motion, limited active range of motion, limited passive range of motion, limited active range of motion due to pain, Circulation is intact in all extremities. Sensation intact. Compartment Syndrome exam of affected extremity: is normal. Weight bearing: able to fully bear weight, Vital Signs: 13:58 BP 140 / 84; Pulse 103; Resp 16 S; Temp 97.6(TE); Pulse Ox 98% on R/A; Weight 62.6 kg aa5 (R); Height 5 ft. 6 in. (R); 18:00 BP 136 / 97; Pulse 75; Resp 18; Pulse Ox 95% on R/A; iw 13:58 Body Mass Index 22.27 (62.60 kg, 167.64 cm) aa5 MDM: 14:04 Medical Screening Exam initiated eulogio 17:51 Differential diagnosis: humeral head fracture, glenoid fracture, tendonitis, Blunt eulogio Chest Trauma Chest Wall Contusion. Differential diagnosis: fracture, multiple trauma. Data reviewed: vital signs, nurses notes, lab test result(s), EKG, radiologic studies, CT scan, plain films. Consideration of Admission/Observation Escalation of care including admission/observation considered. I considered the following discharge prescriptions or medication management in the emergency department Medications were administered in the Emergency Department. See MAR. Independent interpretation of the following test(s) in the Emergency Department EKG: See my EKG interpretation above. Test considered but Not performed: MRI: NO MRI. Care significantly affected by the following chronic conditions: Diabetes. 08/12 14:06 Order name: CBC with Diff; Complete Time: 16:52 [facility] 08/12 14:06 Order name: Comprehensive Metabolic Panel; Complete Time: 16:52 [facility] 08/12 14:06 Order name: Lipase; Complete Time: 16:52 [facility] 08/12 14:06 Order name: Shoulder Left (2 View) XRAY; Complete Time: 16:52 [facility] 08/12 14:06 Order name: Humerus Left XRAY; Complete Time: 16:52 [facility] 08/12 14:06 Order name: CT Head C Spine; Complete Time: 16:52 [facility] 08/12 14:06 Order name: CT Chest, Abdomen, Pelvis - W/Contrast; Complete Time: 16:52 [facility] 08/12 16:27 Order name: UPPER EXTREMITY VENOUS UNILATE; Complete Time: 17:50 EDMS 08/12 16:53 Order name: Elbow Left 3 View XRAY eulogio 08/12 16:52 Order name: Sling; Complete Time: 18:51 eulogio Administered Medications: 17:05 Drug: NS 0.9% IV 500 ml IV at bolus once; to be given as a bolus over 30 minutes Route: iw IV; Rate: bolus; Site: right antecubital; 18:00 Follow up: IV Status: Completed infusion iw 17:05 Drug: fentaNYL (PF) IVP 25 mcg IVP once Route: IVP; Site: right antecubital; iw 18:30 Follow up: Response: No adverse reaction; Pain is decreased iw 17:05 Drug: Ondansetron IVP 4 mg IVP once; over 2 minutes Route: IVP; Site: right antecubital;iw 18:00 Follow up: Response: No adverse reaction iw 18:09 Drug: Enoxaparin Sub-Q 1 mg/kg Sub-Q once Route: Sub-Q; Site: right lower abdomen; iw 19:00 Follow up: Response: No adverse reaction iw Disposition Summary: 08/12/24 17:54 Transfer Ordered Notes: Transfer Location: [facility] eulogio Reason: Higher level of care eulogio Condition: Fair eulogio Problem: new eulogio Symptoms: have improved eulogio Accepting Physician: RENEA KIRK(08/12/24 19:25) iw Diagnosis - Fall on same level, unspecified eulogio - Acute embolism and thrombosis of deep veins of left upper extremity eulogio - Displaced fracture of shaft of left clavicle eulogio Discharge Instructions: - Discharge Summary Sheet eulogio - Clavicle Fracture eulogio - Fall Prevention in the Home, Adult eulogio - Clavicle Fracture, [id number] eulogio - Fall Prevention in the Home, Adult, [id number] eulogio - How to Use a Sling, Lyqs-dd-Deev eulogio - How to Use a Sling eulogio Forms: - Medication Reconciliation Form eulogio - SBAR form eulogio Prescriptions: - acetaminophen-codeine 300-30 mg Oral tablet - take 2 tablet ORAL route every 6 hours as needed for pain; 20 tablet; Refills: eulogio 0, Product Selection Permitted Signatures: Dispatcher [employer] EDFL John Parker MD MD cha Williams, Irene RN RN iw Dona Harkins RN RN aa5 Corrections: (The following items were deleted from the chart) 14: 14:07 Chest Abdomen Pelvis W Con+CT.RAD.BRZ ordered. EDMS EDMS 14: 14:07 IS+RC.RAD.BRZ ordered. EDMS EDMS 16:27 16:22 Extremity Venous Uni Ltd+US.RAD.BRZ ordered. EDMS EDMS 19:25 17:54 TO YELENA box
--- NOTE | 2024-08-12 17:54 | ER ---
Nurse's Notes [facility] Name: Cristobal Napier Age: 78 yrs Sex: Male : 1945 Arrival Date: 08/12/2024 Time: 13:33 Bed 9 Private MD: Diagnosis: Fall on same level, unspecified;Acute embolism and thrombosis of deep veins of left upper extremity;Displaced fracture of shaft of left clavicle Presentation: 08/12 13:58 Chief complaint: Patient states: "I fell on Monday walking to my wheelchair and I don't aa5 walk much and my whole left side if hurting". Pt c/o pain to left shoulder, left arm, and left lateral aspect of rib cage. Coronavirus screen: At this time, the client does not indicate any symptoms associated with coronavirus-19. Ebola Screen: Patient denies travel to an Ebola-affected area in the 21 days before illness onset. Initial Sepsis Screen: Does the patient meet any 2 criteria? No. Patient's initial sepsis screen is negative. Does the patient have a suspected source of infection? No. Patient's initial sepsis screen is negative. Risk Assessment: Do you want to hurt yourself or someone else? Patient reports no desire to harm self or others. Onset of symptoms was August 09, 2024. 13:58 Method Of Arrival: Wheelchair aa5 13:58 Acuity: LEO 3 aa5 Historical: - Allergies: 13:57 No Known Allergies; aa5 - PMHx: 13:57 Diabetes - NIDDM; aa5 - Immunization history:: Adult Immunizations unknown. - Infectious Disease History:: Denies. - Social history:: Smoking status: Patient reports the use of cigarette tobacco products. Screenin:07 [facility] ED Fall Risk Assessment (Adult) History of falling in the last 3 months, iw including since admission Yes- single mechanical fall (1 pt) Confusion or Disorientation No (0 pts) Intoxicated or Sedated No (0 pts) Impaired Gait Yes (1 pt) Mobility Assist Device Used Yes (1 pt) Altered Elimination No (0 pt) Score/Fall Risk Level 3 or more points = High Risk Oriented to surroundings, Maintained a safe environment. Abuse screen: Denies injuries from another. Nutritional screening: No deficits noted. Tuberculosis screening: No symptoms or risk factors identified. Assessment: 17:06 General: Appears in no apparent distress. Behavior is calm, cooperative. Pain: iw Complains of pain in left clavicle and left arm and anterior aspect of left shoulder and chest and left supraclavicular area Pain currently is 8 out of 10 on a pain scale. Neuro: Level of Consciousness is awake, alert, obeys commands, Oriented to person, place, time, situation. Cardiovascular: Patient's skin is warm and dry. Respiratory: Respiratory effort is even, unlabored, Respiratory pattern is regular. Derm: Skin is intact, is fragile. Musculoskeletal: Range of motion: limited in left shoulder. 17:59 Reassessment: Initiated transfer to [facility], requesting trauma services. Spoke ss with Janet Garcia, check and transfer beader who states she will call the trauma surgeon and call us back. 18:00 Reassessment: Patient appears in no apparent distress at this time. Patient and/or iw family updated on plan of care and expected duration. Pain level reassessed. Patient states symptoms have not improved. 18:18 Reassessment: Approval given by Janet Garcia. Accepting physician, Dr. Palacios,, [facility]. Vital Signs: 13:58 BP 140 / 84; Pulse 103; Resp 16 S; Temp 97.6(TE); Pulse Ox 98% on R/A; Weight 62.6 kg aa5 (R); Height 5 ft. 6 in. (R); 18:00 BP 136 / 97; Pulse 75; Resp 18; Pulse Ox 95% on R/A; iw 13:58 Body Mass Index 22.27 (62.60 kg, 167.64 cm) aa5 ED Course: 13:39 Patient arrived in ED. mg5 13:56 Arm band placed on. aa5 13:59 Triage completed. aa5 14:04 John Parker MD is Attending Physician. eulogio 14:24 Initial lab(s) drawn, sent to lab. Inserted saline lock: 22 gauge in right antecubital aa5 area, using aseptic technique. Blood collected. Flushed with 10 mL NS. 15:06 Shoulder Left (2 View) XRAY In Process Unspecified. EDMS 15:06 Humerus Left XRAY In Process Unspecified. EDMS 15:14 CT Head C Spine In Process Unspecified. EDMS 15:15 CT Chest, Abdomen, Pelvis - W/Contrast In Process Unspecified. EDMS 16:48 Victorina Neil, RN is Primary Nurse. iw 17:37 UPPER EXTREMITY VENOUS UNILATE In Process Unspecified. EDMS 18:18 Patient has correct armband on for positive identification. ss 18:26 Elbow Left 3 View XRAY In Process Unspecified. EDMS 19:24 No provider procedures requiring assistance completed. Patient transferred, IV remains iw in place. Administered Medications: 17:05 Drug: NS 0.9% IV 500 ml IV at bolus once; to be given as a bolus over 30 minutes Route: iw IV; Rate: bolus; Site: right antecubital; 18:00 Follow up: IV Status: Completed infusion iw 17:05 Drug: fentaNYL (PF) IVP 25 mcg IVP once Route: IVP; Site: right antecubital; iw 18:30 Follow up: Response: No adverse reaction; Pain is decreased iw 17:05 Drug: Ondansetron IVP 4 mg IVP once; over 2 minutes Route: IVP; Site: right antecubital;iw 18:00 Follow up: Response: No adverse reaction iw 18:09 Drug: Enoxaparin Sub-Q 1 mg/kg Sub-Q once Route: Sub-Q; Site: right lower abdomen; iw 19:00 Follow up: Response: No adverse reaction iw Medication: 18:18 VIS not applicable for this client. ss Outcome: 17:54 ER care complete, transfer ordered by . eulogio 19:25 Transferred by [facility]. Transfer form completed. X-rays sent w/ patient. iw 19:25 Condition: stable 19:25 Discharge instructions given to patient, Instructed on the need for transfer, Demonstrated understanding of instructions, 19:25 Patient left the ED. iw Signatures: Dispatcher [employer] EDMS John Parker MD MD cha Williams, Irene, RN RN iw Dona Harkins RN RN aa5 Megan Reece RN RN April Esquivel mg5 Corrections: (The following items were deleted from the chart) 17:53 13:58 Acuity: LEO 4 aa5 aa5
[2024-08-12] MEDS ORDERED: ENOXAPARIN 60 MG/0.6 ML SQ ONE (18:07)
--- NOTE | 2024-08-12 18:39 | RAD REPORT ---
Exam:Elbow Left 3 View HISTORY: Left elbow pain FINDINGS: No fracture or dislocation seen
[2024-08-12 20:38] VITALS: TEMP 97.6
[2024-08-12 20:43] VITALS: BP 136/97; O2SAT 95
== END 2024-08-12 19:25 | disposition short-term general hospital (02) ==
LOC: ER 13:33
DX: S42.022A Displaced fracture of shaft of left clavicle, initial encounter for closed fracture (principal); I82.622 Acute embolism and thrombosis of deep veins of left upper extremity; W18.30XA Fall on same level, unspecified, initial encounter; Z72.0 Tobacco use
CPT/HCPCS: 85025; 36415; 83690; 80053; 70450; 72125; 71260; 74177; 73080; 73060; 73030; 93971; Q9967; J1650; J3010; J2405; J7050; 96361; 96372; 96374; 96375; 99285

== ENCOUNTER 2024-11-29 18:50 | Emergency (ER) | payer OTHER ==
--- OUTSIDE RECORDS SUMMARY | 2024-11-29 18:52 | XMS REPORT | Continuity of Care Document ---
Author Name Unknown Address [address] [facility] [address] [place] [address] [facility] Address [address] [facility] [address] [place] [address] Care Team Providers Care Half Sole Fitter Name Role Phone Pcp, Pcp Primary Care Physician Unavailab WONG Garza Attending Clinician Unavaila MICHAEL Chase Attending Clinician Liudmila rico Knight MD, Wong Peguero Attending Clinician [phone]- [phone] Wong Irvin MD Attending Clinician [phone] Michael Dennis MD Attending Clinician Maritza Hernandez Attending Clinician Unavailable CHUN ALEXANDRA Attending Clinician Unavaila alina Doctor Unassigned, Combine Attending Clinician U Shiva Cook MD Attending Clinician Payers Payer Name Policy Type Policy Number Effective Date Expirati on Date Source [employer] [id number] Allergies, Adverse Reactions, Alerts Allergy Name Allergy Type Status Severity Reaction(s) Onset Date Inactive Date Treating Clinician Comments Source NO KNOWN ALLERGIE S Drug Class Active [facility] Social History Social Habit Start Date Stop Date Quantity Comments Source Gender identity 2024-08-12 20:16:20 Identifies as male gender (finding) James Samaniego Sexual orientation [facility] Sex Assigned At [facility] History of Social function 2024-08-13 00:00:00 2024-08-13 00:00:00 James Samaniego Smoking Status Start Date Stop Date Source Tobacco smoking consumption unknown [facility] Medications Ordered Medication Name Filled Medication Name Start Date Stop Date Current Medication? Ordering Clinician Indication Dosage Frequency Signature (SIG) Comments Components Source ondansetron (Zofran) injection 4 mg ondansetron (Zofran) injection 4 mg 2023-10 01:25: 00 08-13 01:41 :00 No 4mg 4 mg, Intravenou s, Once, On Mon08/13/24 at 0125, For 1 dose, Administer IVP. Raquel Hyde [facility] morphine injection 4 mg morphine injection 4 mg 2023-10 01:25: 00 08-13 01:41 :00 No 4mg 4 mg, Intravenou s, Once, On Mon08/13/24 at 0125, For 1 dose, Administer IVP. Raquel Hyde [facility] iohexol (OMNIPaque) 350 MG/ML injection 65 mL iohexol (OMNIPaque) 350 MG/ML injection 65 mL 2023-10 23:16: 38 08-12 23:18 :00 No 65mL 65 mL, Intravenou s, Once in imaging, Starting on Mon08/12/24 at 2316, For 1 dose Raquel Hyde [facility] sodium chloride (NS) 0.9 % flush 10 mL sodium chloride (NS) 0.9 % flush 10 mL 2023-10 21:12: 46 Yes 10mL [Order 1 Start] Name: Insert peripheral IV Signed Summary: Once, On Mon08/12/24 at 2112, For 1 occurrence [Order 1 End] [Order 2 Start] Name: Saline lock IV Signed Summary: Once, On Mon08/12/24 at 2112, For 1 occurrence [Order 2 End] [Order 3 Start] Name: sodium chloride (NS) 0.9 % flush 10 mL Signed Summary: 10 mL, Intravenou s, As needed, line care, Starting on Mon08/12/24 at 2111 [Order 3 End] Raquel Hyde [facility] Vital Signs Vital Name Observation Time Observation Value Comments [place] s[place]i Systolic blood pressure 2024-08-13 12:00:00 121 mm[Hg] [facility] Diastolic blood pressure 2024-08-13 12:00:00 72 mm[Hg] [facility] Heart rate 2024-08-13 12:00:00 58 /min [facility] [place] [facility] Respiratory rate 2024-08-13 12:00:00 16 /min [facility] Oxygen saturation in Arterial blood by Pulse oximetry 2024-08-13 12:00:00 96 /min [facility] Body temperature 2024-08-12 20:23:00 36.28 [facility] Body height 2024-08-12 20:23:00 165.1 cm Darryl [facility] Body weight 2024-08-12 20:23:00 56.7 kg [facility] BMI 2024-08-12 20:23:00 20.80 kg/m2 [facility] Systolic blood pressure 2024-08-13 12:00:00 121 mm[Hg] [facility] Diastolic blood pressure 2024-08-13 12:00:00 72 mm[Hg] [facility] Heart rate 2024-08-13 12:00:00 58 /[facility] 2024-08-13 12:00:00 16 /min [facility] Oxygen saturation in Arterial blood by Pulse oximetry 2024-08-13 12:00:00 96 /min [facility] Body temperature 2024-08-12 20:23:00 36.28 [facility] Body height 2024-08-12 20:23:00 165.1 cm Darryl [facility] Body weight 2024-08-12 20:23:00 56.7 kg [facility] BMI 2024-08-12 20:23:00 20.80 kg/m2 [facility] Procedures Procedure Date / Time Performed Performing Clinician Source XR FEMUR 2+ VW RIGHT 2024-08-13 07:26:[address] [facility] XR PELVIS 1-2 VIEWS 2024-08-13 05:47:[address] [facility] TYPE AND SCREEN 2024-08-13 01:44:[address] [facility] DRUG SCREEN URINE (8 DRUGS) 2024-08-13 01:44:[address] [facility] CT pelvis wo IV contrast 2024-08-13 00:00:[address] [facility] CT ANGIOGRAM NECK 2024-08-12 23:16:[address] [facility] ETHANOL LEVEL 2024-08-12 23:13:[facility], VENOUS 2024-08-12 23:13:00 Shopmanuel, Anton Carrero [facility] COMPLETE BLOOD COUNT W/DIFF AND PLATELET 2024-08-12 23:13:[address] [facility] LACTIC ACID WITH 2 HOUR REFLEX 2024-08-12 23:13:00 Shopsantiago, Anton Magan [facility] COMPLETE BLOOD COUNT 2024-08-12 23:13:00 Shopshi re, Anton Carrero [facility] AUTOMATED DIFFERENTIAL 2024-08-12 23:13:00 Shops Anton newberry [facility] BASIC METABOLIC PANEL 2024-08-12 23:13:00 Shopsh santiago, Anton Carrero [facility] HEPATIC FUNCTION PANEL 2024-08-12 23:13:[address] Shops [address] [facility] PROTIME-INR 2024-08-12 23:12:00 [facility] PTT 2024-08-12 23:12:00 [facility] THROMBOELASTOGRAPH RAPID 2024-08-12 23:12:00 [facility] Anton lopez [facility] XR CLAVICLE LEFT 2024-08-12 22:36:00 [facility] XR SHOULDER 2+ VIEWS LEFT 2024-08-12 22:36:[address] Anton [address]an [facility] XR HUMERUS 2 VIEWS LEFT 2024-08-12 22:36:[address] [facility] XR CHEST 1 VIEW 2024-08-12 22:36:00 [facility] US UPPER EXTREMITY VENOUS DOPPLER LEFT 2024-08-12 22:23:50 Shopshire, Anton [facility] ECG 12-LEAD 2024-08-12 21:49:59 Ulices Ash [facility] ASSIGNMENT OF BENEFITS 2020-10-13 14:20:10 Docto r Unassigned, Combine [facility] REFERRAL- REQUEST/RESPONSE 2020-10-05 06:01:00 D jonomaine Unassigned, Combine [facility] Encounters Start Date/Time End Date/Time Encounter Type Admission Type Attending [facility] Care Department Encounter ID Source 2024-08-12 20:29:00 2024-08-13 12:16:00 Emergency Emergency DANY, MICHAEL VANCE [facility] General Medicine [id number] [facility] 2024-08-12 20:29:00 2024-08-13 12:16:00 Emergency Wong Knight Samuel Blake Maddow, Charles [facility] [id number] 2024-08-13 00:00:00 2024-08-13 09:10:45 Patient Outreach [place] [address] [id number] [facility] 2024-08-12 22:58:32 2024-08-12 23:59:00 Outpatient [facility] [id number] [facility] 2024-08-12 22:39:53 2024-08-12 23:59:00 Outpatient [facility] [id number] [facility] 2024-08-12 22:39:52 2024-08-12 23:59:00 Outpatient [facility] [id number] [facility] 2024-08-12 21:47:37 2024-08-12 23:59:00 Outpatient [facility] [id number] [facility] 2024-08-12 21:41:02 2024-08-12 23:59:00 Outpatient [facility] [id number] [facility] 2024-08-12 21:41:02 2024-08-12 23:59:00 Outpatient [facility] [id number] [facility] 2024-08-12 21:16:10 2024-08-12 23:59:00 Outpatient [facility] [id number] [facility] 2024-08-12 21:16:09 2024-08-12 23:59:00 Outpatient [facility] [id number] [facility] 2024-08-12 21:05:21 2024-08-12 23:59:00 Outpatient [facility] [id number] [facility] 2024-08-12 22:39:53 2024-08-12 22:39:53 Outpatient [facility] [id number] [facility] 2020-10-13 08:00:00 2020-10-13 08:00:00 Outpatient CHUN AVILEZ [facility] [id number] [facility] 2020-10-13 00:00:00 2020-10-13 00:00:00 Orders Only Doctor Unassigned, Combine [facility] [id number] [facility] 2020-10-05 00:00:00 2020-10-05 00:00:00 Orders Only Doctor Unassigned, Combine [facility] [id number] [facility] 2019-09-25 13:00:00 2019-09-25 13:15:00 Office Visit Shiva Adkins [facility] morenita Perez [id number] [facility] Results Test Description Test Time Test Comments Results Result Co mments Source [facility] Epic Notes Date/Time Note Provider Source 2024-08-13 12:16:37 [facility] * Calculated C-SSRS Risk Score (Lifetime/Recent) Answer Date of Assessment Author No Risk Indicated 08/13/2024 3:34 AM Jatinder Green RN * [place] Suicide Severity Rating Scale (Screener/Recent Self-Report) Question Answer Date of Assessment Author 1. Wish to be (Past 1 Month) No 024 3:34 AM Jatinder Green RN 2. Non-Specific Active Suici braulio Thoughts (Past 1 Month) No 08/13/2024 3:34 AM Jatinder Green, KERRI 6. Suicidal Behavior (Lifetime) No 3:34 AM Jatinder Green RN [facility]ad[facility]62-15-78 12:16:37Pending Results Scheduled Orders Name Type Priority Associated Diagnoses Orde r Schedule CT pelvis wo IV contrast Imaging STAT Once for 1 Occur rences starting 08/13/2024 until 08/13/2024 Health Maintenance Due Date Last Done Comments Lipid Panel 1945 Annual Physical 1950 DTaP/Tdap/Td Vaccines (1 - Tdap) 1966 Zoster Vaccines (1 of 2) 1997 Respiratory Syncytial Virus (RSV) or >=60 (1 - 1-dose 60+ series) 2007 Pneumococcal Vaccine: 65+ Ye ars (1 of 1 - PCV) 2012 Influenza Vaccine (#1) 2024 HIB Vaccines Aged Out No longer eligi ble based on patient's age to complete this topic HPV Vaccines Aged Out No longer eligi ble based on patient's age to complete this topic Hepatitis A Vaccines Aged Out No long er eligible based on patient's age to complete this topic Hepatitis B Vaccines Aged Out No long er eligible based on patient's age to complete this topic IPV Vaccines Aged Out No longer eligi ble based on patient's age to complete this topic Meningococcal Vaccine Aged Out No renard javi eligible based on patient's age to complete this topic Rotavirus Vaccines Aged Out No longer eligible based on patient's age to complete this topic [id number] 12:16:37 Diagnosis Multiple fractures of ribs, left side, initial encounter for closed fracture - Primary Closed displaced fracture of shaft of left clavicle, initial encounter Closed minimally displaced z one I fracture of sacrum, initial encounter ([facility]) [id number] 12:16:37 [facility]Wjvioyw6748-25-39 09:10:54 [facility] Hospital[facility]ryqsfd5754-41-93 09:10:54* Intimate Partner Violence Question Answer Date of Assessment Author Within the last year, have y ou been humiliated or emotionally abused in other ways by your partner or ex-partner? No 08/13/2024 3:14 AM Jatinder Lopez RN Within the last year, have y ou been afraid of your partner or ex-partner? No 08/13/2024 3:14 AM Jatinder Green RN Within the last year, have y ou been raped or forced to have any kind of sexual activity by your partner or ex-partner? No 08/13/2024 3:14 AM Jatinder Green RN Within the last year, have y ou been kicked, hit, slapped, or otherwise physically hurt by your partner or ex-partner? No 08/13/2024 3:14 AM Jatinder Green RN * Calculated C-SSRS Risk Score (Lifetime/Recent) Answer Date of Assessment Author No Risk Indicated 08/13/2024 3:34 AM Jatinder Green RN * [place] Suicide Severity Rating Scale (Screener/Recent Self-Report) Question Answer Date of Assessment Author 1. Wish to be (Past 1 Month) No 024 3:34 AM Jatinder Green RN 2. Non-Specific Active Suici braulio Thoughts (Past 1 Month) No 08/13/2024 3:34 AM Jatinder Green RN 6. Suicidal Behavior (Lifetime) No 3:34 AM Jatinder Green RN [id number] 09:10:54* Maritza Hernandez - 08/13/2024 9:08 AM HEAT CURER CHW attempted to navigate patient. Patient and family declines services and additional follow up. Case to be closed. [place] [facility]hkkvaf9918-07-14 09:10:54 [facility] 20:19:00 History of Present Illness: Chief Complaint: Patient presents with Fall Collarbone Injury 78-year-old male with history of diabetes on metformin presents after mechanical fall occurring at home earlier today. Patient states he was getting up from his chair and trying to grab his walker when he lost his balance. He denies chest pain shortness of breath, dizziness or prodromal symptoms prior to the fall. Patient seen at OSH where he was found to have a left clavicle fracture. He also had CT head, C-spine, chest abdomen pelvis performed which showed no traumatic injuries. Patient did have a left upper extremity ultrasound at outside hospital that showed clots in the axillary, brachial and subclavian veins. Patient History No past medical history on file. No past surgical history on file. No family history on file. Social History: Tobacco Use Smoking status: Not on file Smokeless tobacco: Not on file Substance Use Topics Alcohol use: Not on file Drug use: Not on file Review of Systems: Review of Systems Constitutional: Negative for chills and fever. HENT: Negative for ear pain, rhinorrhea and sore throat. Eyes: Negative for pain and visual disturbance. Respiratory: Negative for cough, shortness of breath and wheezing. Cardiovascular: Negative for chest pain and palpitations. Gastrointestinal: Negative for abdominal pain, diarrhea, nausea and vomiting. Genitourinary: Negative for dysuria and hematuria. Musculoskeletal: Negative for back pain, neck pain and neck stiffness. LUE pain and ttp. Skin: Negative for color change and rash. Neurological: Negative for dizziness, seizures, syncope, light-headedness and headaches. Psychiatric/Behavioral: Negative for behavioral problems and hallucinations. All other systems reviewed and are negative. Physical Exam: Vitals and nursing note reviewed. Constitutional: General: He is not in acute distress. Appearance: Normal appearance. He is well-developed. He is not ill-appearing or toxic-appearing. HENT: Head: Normocephalic and atraumatic. Right Ear: External ear normal. Left Ear: External ear normal. Nose: No congestion or rhinorrhea. Mouth/Throat: Mouth: Mucous membranes are moist. Eyes: Extraocular Movements: Extraocular movements intact. Conjunctiva/sclera: Conjunctivae normal. Cardiovascular: Rate and Rhythm: Normal rate and regular rhythm. Heart sounds: No murmur heard. No friction rub. No gallop. Pulmonary: Effort: Pulmonary effort is normal. No respiratory distress. Breath sounds: Normal breath sounds. No wheezing, rhonchi or rales. Abdominal: General: Bowel sounds are normal. Palpations: Abdomen is soft. Tenderness: There is no abdominal tenderness. Musculoskeletal: General: No swelling or tenderness. Normal range of motion. Cervical back: Neck supple. Comments: Decreased range of motion secondary to pain. 2+ pulses and normal capillary refill in the left upper extremity. Skin: General: Skin is warm and dry. Coloration: Skin is not jaundiced. Findings: No erythema or rash. Neurological: General: No focal deficit present. Mental Status: He is alert and oriented to person, place, and time. Motor: No weakness. Psychiatric: Mood and Affect: Mood normal. Behavior: Behavior normal. Triage Vitals: BP: 123/77, Heart Rate: 78, Temp: 36.3 ?C (97.3 ?F), Resp: 18, SpO2: 99 %, Height: 165.1 cm (5' 5"), Weight: 56.7 kg (125 lb) Last Recorded Vitals: BP: 123/77, Heart Rate: 78, Temp: 36.3 ?C (97.3 ?F), Resp: 18, SpO2: 99 %, Height: 165.1 cm (5' 5"), Weight: 56.7 kg (125 lb) Procedures Performed: Procedures ED Course : ED Course: as of 08/12/242149Aug 12, [id number] 78-year-old male with history of diabetes on metformin presents after mechanical fall occurring at home earlier today. Patient states he was getting up from his chair and trying to grab his walker when he lost his balance. He denies chest pain shortness of breath, dizziness or prodromal symptoms prior to the fall. Patient seen at OSH where he was found to have a left clavicle fracture. He also had CT head, C-spine, chest abdomen pelvis performed which showed no traumatic injuries. Patient did have a left upper extremity ultrasound at outside hospital that showed clots in the axillary and subclavian veins. On exam patient is GCS 15 with no chest wall tenderness, abdominal tenderness or C-spine tenderness. He has full range of motion, normal sensation in the right upper extremity and bilateral lower extremities. Patient has good capillary refill and strong pulses in the left upper extremity with decreased range of motion secondary to pain. Plan for trauma labs, chest x-ray, clavicular x-ray left upper extremity ultrasound and CTA neck. [MS] 2148 Patient was handed off to oncoming team. Full H&P, labs and imaging and plan conveyed to oncoming team. Pt with vital signs stable, no acute distress and currently pending labs, CT imaging, ortho consult and likely admission. [MS] ED Course: User Index [MS] Anton Ash MD Disposition: Medical Decision Making ASSESSMENT: 78-year-old male with history of diabetes on metformin presents after mechanical fall occurring at home earlier today. Patient states he was getting up from his chair and trying to grab his walker when he lost his balance. He denies chest pain shortness of breath, dizziness or prodromal symptoms prior to the fall. Patient seen at OSH where he was found to have a left clavicle fracture. He also had CT head, C-spine, chest abdomen pelvis performed which showed no traumatic injuries. Patient did have a left upper extremity ultrasound at outside hospital that showed clots in the axillary and subclavian veins. DDx: Fracture, laceration, vascular injury, C-spine injury PLAN: Patient well appearing, VSS, afebrile, satting well on RA with no increased WOB CBC, BMP, chest x-ray, PT/PTT/TEG/x-ray left upper extremity, Doppler ultrasound of left lower extremity, CTA neck Labs Reviewed BASIC METABOLIC PANEL HEPATIC FUNCTION PANEL ETHANOL LEVEL LACTIC ACID WITH 2 HOUR REFLEX BLOOD GAS, VENOUS COMPLETE BLOOD COUNT W/DIFF AND PLATELET Narrative: The following orders were created for panel order Complete Blood Count w/Diff and Platelet. Procedure Abnormality Status --------- ------ Complete Blood Count[[id number]] Automated Differential[[id number]] Please view results for these tests on the individual orders. TYPE AND SCREEN THROMBOELASTOGRAPH RAPID DRUG SCREEN URINE (8 DRUGS) PROTIME-INR PTT COMPLETE BLOOD COUNT AUTOMATED DIFFERENTIAL Imaging: XR chest 1 view (Results Pending) XR clavicle left (Results Pending) XR shoulder 2+ views left (Results Pending) XR humerus 2 views left (Results Pending) CT ANGIOGRAM NECK (Results Pending) US upper extremity venous doppler left (Results Pending) Reassess/ED course ED Course: as of 08/12/242153 Time: 08/12 2134 Comment: 78-year-old male with history of diabetes on metformin presents after mechanical fall occurring at home earlier today. Patient states he was getting up from his chair and trying to grab his walker when he lost his balance. He denies chest pain shortness of breath, dizziness or prodromal symptoms prior to the fall. Patient seen at OSH where he was found to have a left clavicle fracture. He also had CT head, C-spine, chest abdomen pelvis performed which showed no traumatic injuries. Patient did have a left upper extremity ultrasound at outside hospital that showed clots in the axillary and subclavian veins. On exam patient is GCS 15 with no chest wall tenderness, abdominal tenderness or C-spine tenderness. He has full range of motion, normal sensation in the right upper extremity and bilateral lower extremities. Patient has good capillary refill and strong pulses in the left upper extremity with decreased range of motion secondary to pain. Plan for trauma labs, chest x-ray, clavicular x-ray left upper extremity ultrasound and CTA neck. By: Anton Ash MD Time: 08/12 2149 Comment: Patient was handed off to oncoming team. Full H&P, labs and imaging and plan conveyed to oncoming team. Pt with vital signs stable, no acute distress and currently pending labs, CT imaging, ortho consult and likely admission. By: Anton Ash MD DISPO: Transfer of care to oncoming team. I Explained the H&P, resulted studies and plan. Pending labs, CT imaging. @DIAG@ Anton Ash MD Emergency Medicine, PGY-3 08/12/24 DMEDICAL DECISION MAKING Complexity of Problems Addressed High: I am concerned about a severe complexity problem which was evidenced by the differential, and associated workup to rule out the severe problem: Clavicle fracture acute, which is a HPI problem for this patient as evidenced by HPI. Complexity of Data Review Category 1: (# Of Data Points) Ordered the following tests: CBC, BMP, x-rays asthma Category 2: Category 3: Risk of Management (Current Prescription Management) I performed prescription management this visit as evidenced by explaining to the patient the importance of taking Metformin for their chronic medical condition. Amount and/or Complexity of Data Reviewed Labs: ordered. Radiology: ordered. ECG/medicine tests: ordered. Risk OTC drugs. Prescription drug management. Scoring Tools Anton Ash MD 08/12/242156 Cosigned by Wong Knight MD at 08/13/2024 10:06 AM HEAT CURER CURER CURER Associated attestation - Wong Knight MD - 08/13/2024 10:06 AM HEAT CURER Teaching Attending Attestation: The patient was seen and examined by me in the presence of, or jointly with, the resident, and I agree with the History/Exam/Medical Decision Making documented unless further documented below. Additionally, I was directly involved in the management of the patient. Impression: 1. Multiple fractures of ribs, left side, initial encounter for closed fracture 2. Closed displaced fracture of shaft of left clavicle, initial encounter 3. Closed minimally displaced zone I fracture of sacrum, initial encounter ([facility]) [facility]
--- NOTE | 2024-11-29 19:59 | EDPHYS ---
Physician Documentation [facility] Name: Cristobal Napier Age: 79 yrs Sex: Male : 1945 Arrival Date: 11/29/2024 Time: 18:50 Bed 3 Private MD: ED Physician Javy Chavez HPI: 11/29 19:03 This 79 yrs old Male presents to ER via EMS with complaints of Low Blood Sugar.rn 19:03 The patient or guardian reports hypoglycemia, that was potentially precipitated by no rn particular event. Onset: The symptoms/episode began/occurred at an unknown time. It is unknown whether or not the patient has had similar symptoms in the past. EMS reports family member called for low blood sugar. The blood sugar they obtained was in the 90s. Glucose here is 109. Patient states completely at baseline. Denies any symptoms. Reports takes glipizide but took it earlier this morning and has eaten since then. Reports smoking marijuana earlier which she often does for therapeutic treatment. Reports appetite is good. Denies chest pain or shortness of breath. No abdominal pain. No vomiting or diarrhea. No confusion and no focal neurological deficits. Patient reports feels fine and does not need to be here.. Historical: - Allergies: 19:00 No Known Allergies; bm8 - PMHx: 19:00 Diabetes - NIDDM; bm8 - PSHx: 19:00 None; bm8 - Immunization history:: Adult Immunizations up to date. - Infectious Disease History:: Denies. - Social history:: Smoking status: Patient reports the use of cigarette tobacco products, Patient uses street drugs, marijuana. - Family history:: not pertinent. - Hospitalizations: : No recent hospitalization is reported. ROS: 19:03 Constitutional: Negative for fever, chills, and weight loss, Neck: Negative for injury, rn pain, and swelling, Cardiovascular: Negative for chest pain, palpitations, and edema, Respiratory: Negative for shortness of breath, cough, wheezing, and pleuritic chest pain, Abdomen/GI: Negative for abdominal pain, nausea, vomiting, diarrhea, and constipation, Back: Negative for injury and pain, MS/Extremity: Negative for injury and deformity, Skin: Negative for injury, rash, and discoloration, Neuro: Negative for headache, weakness, numbness, tingling, and seizure, Exam: 19:03 Constitutional: This is a well developed, well nourished patient who is awake, alert, rn and in no acute distress. Head/Face: Normocephalic, atraumatic. ENT: Dry mucous membranes Neck: No meningismus Cardiovascular: Tachycardic, regular. Respiratory: No increased work of breathing, no retractions or nasal flaring. Abdomen/GI: Soft, nontender, no peritoneal signs or masses Skin: Warm, dry MS/ Extremity: Pulses equal, no cyanosis. Neurovascular intact. Full, normal range of motion. Equal circumference. Neuro: Awake and alert, GCS 15, oriented to person, place, and situation. Cranial nerves II-XII grossly intact. Motor strength 5/5 in all extremities. Sensory grossly intact. Cerebellar exam normal. Vital Signs: 18:58 BP 166 / 94; Pulse 102; Resp 18; Temp 97.7; Pulse Ox 99% ; Weight 63.5 kg; Height 5 ft. bm8 6 in. ; Pain 0/10; 19:54 BP 140 / 93; Pulse 100; Resp 18; Temp 97.7; Pulse Ox 100% ; Pain 0/10; bm8 18:58 Body Mass Index 22.60 (63.50 kg, 167.64 cm) bm8 18:58 Pain Scale: Adult bm8 19:54 Pain Scale: Adult bm8 Lokesh Coma Score: 19:54 Eye Response: spontaneous(4). Motor Response: obeys commands(6). Verbal Response: bm8 oriented(5). Total: 15. MDM: 19:00 Medical Screening Exam initiated rn 19:37 Differential diagnosis: hypoglycemic episode. Data reviewed: vital signs, nurses notes, international logistics manager test result(s), and as a result, I will discharge patient. Counseling: I had a detailed discussion with the patient and/or guardian regarding the historical points, exam findings, and any diagnostic results supporting the discharge/admit diagnosis, lab results, the need for outpatient follow up, to return to the emergency department if symptoms worsen or persist or if there are any questions or concerns that arise at home. Response to treatment: the patient's symptoms have resolved after treatment, the patient's condition has returned to base line, the patient is now symptom free, and as a result, I will discharge patient. ED course: Family here to offer contacts, they report that he takes his medicine and does not eat. Had long discussion with patient regarding taking diabetes medication and not maintaining constant or regular diet. He understands. Fed here but he only wanted a little bit of food. Improved glucose. Patient requesting to go home, states he feels fine and is ready to go.. 19:58 ED course: Glucose now 167 and patient feels completely fine. Still wants to go home at rn this time.. 11/29 19:09 Order name: Glucose, Ancillary Testing; Complete Time: 19:26 EDMS 11/29 20:06 Order name: Glucose, Ancillary Testing EDMS 11/29 19:03 Order name: PO challenge; Complete Time: 19:09 rn Administered Medications: No medications were administered Point of Care Testing: Blood Glucose: 19:00 Blood Glucose: 109 mg/dL; bm8 Ranges: Critical Glucose Levels:Adult <50 mg/dl or >400 mg/dl <40 mg/dl or >180 mg/dl Disposition Summary: 11/29/24 19:58 Discharge Ordered Notes: Location: Home rn Problem: new rn Symptoms: have improved rn Condition: Stable rn Diagnosis - Hypoglycemia, unspecified rn Followup: rn - With: Private Physician - When: As needed - Reason: Recheck today's complaints, Re-evaluation by your physician Discharge Instructions: - Discharge Summary Sheet rn - Hypoglycemia rn - Blood Glucose Monitoring, Adult rn - Diabetes Mellitus and Nutrition, Adult rn Forms: - Medication Reconciliation Form rn - Antibiotic phd internship - Prescription Opioid Use rn - Patient Portal Instructions rn - Leadership Thank You Letter rn Signatures: Javy Chavez MD MD rn McDonald, Brad, RN RN bm8
--- NOTE | 2024-11-29 19:59 | ER ---
Nurse's Notes [facility] Name: Cristobal Napier Age: 79 yrs Sex: Male : 1945 Arrival Date: 11/29/2024 Time: 18:50 Bed 3 Private MD: Diagnosis: Hypoglycemia, unspecified Presentation: 11/29 18:58 Chief complaint: Patient states: I feel fine EMS states: family called because they bm8 thought his sugar was too low at 80. Coronavirus screen: At this time, the client does not indicate any symptoms associated with coronavirus-19. Ebola Screen: Patient negative for fever greater than or equal to 101.5 degrees Fahrenheit, and additional compatible Ebola Virus Disease symptoms Patient denies exposure to infectious person. Patient denies travel to an Ebola-affected area in the 21 days before illness onset. No symptoms or risks identified at this time. Initial Sepsis Screen: Does the patient meet any 2 criteria? No. Patient's initial sepsis screen is negative. Does the patient have a suspected source of infection? No. Patient's initial sepsis screen is negative. Risk Assessment: Do you want to hurt yourself or someone else? Patient reports no desire to harm self or others. Onset of symptoms is unknown. 18:58 Method Of Arrival: EMS: [facility] bm8 18:58 Acuity: LEO 5 bm8 Triage Assessment: 19:00 General: Appears in no apparent distress. comfortable, Behavior is calm, cooperative, bm8 appropriate for age. Pain: Denies pain. EENT: No deficits noted. No signs and/or symptoms were reported regarding the EENT system. Neuro: No deficits noted. Level of Consciousness is awake, alert, obeys commands, Oriented to person, place, time, situation, Appropriate for age. Cardiovascular: No deficits noted. Capillary refill < 3 seconds in bilateral fingers Patient's skin is warm and dry. Respiratory: Airway is patent Trachea midline Respiratory effort is even, unlabored, Respiratory pattern is regular, symmetrical. GI: No signs and/or symptoms were reported involving the gastrointestinal system. : No signs and/or symptoms were reported regarding the genitourinary system. Derm: No signs and/or symptoms reported regarding the dermatologic system. Musculoskeletal: No signs and/or symptoms reported regarding the musculoskeletal system. Historical: - Allergies: 19:00 No Known Allergies; bm8 - PMHx: 19:00 Diabetes - NIDDM; bm8 - PSHx: 19:00 None; bm8 - Immunization history:: Adult Immunizations up to date. - Infectious Disease History:: Denies. - Social history:: Smoking status: Patient reports the use of cigarette tobacco products, Patient uses street drugs, marijuana. - Family history:: not pertinent. - Hospitalizations: : No recent hospitalization is reported. Screenin:54 [facility] ED Fall Risk Assessment (Adult) History of falling in the last 3 months, bm8 including since admission Yes- fall prone (multiple falls) (3 pts) Confusion or Disorientation No (0 pts) Intoxicated or Sedated No (0 pts) Impaired Gait Yes (1 pt) Mobility Assist Device Used Yes (1 pt) Altered Elimination No (0 pt) Score/Fall Risk Level 3 or more points = High Risk Oriented to surroundings, Maintained a safe environment, Educated pt \T\ family on fall prevention, incl call for assistance when getting out of bed, Assessed \T\ reinforced patient's understanding of fall precautions, Hourly rounding (assess needs \T\ fall precautionary measures) done, Used ambulatory aids as needed (educated on \T\ assisted with), Used gait belt as appropriate Implemented a Fall Risk Plan of Care. Abuse screen: Denies threats or abuse. Nutritional screening: No deficits noted. Tuberculosis screening: No symptoms or risk factors identified. Assessment: 19:54 Reassessment: Patient appears in no apparent distress at this time. Patient and/or bm8 family updated on plan of care and expected duration. Pain level reassessed. Patient is alert, oriented x 3, equal unlabored respirations, skin warm/dry/pink. Patient denies pain at this time. Patient states symptoms have improved. 19:54 Reassessment: fingerstick BS 168. bm8 Vital Signs: 18:58 BP 166 / 94; Pulse 102; Resp 18; Temp 97.7; Pulse Ox 99% ; Weight 63.5 kg; Height 5 ft. bm8 6 in. ; Pain 0/10; 19:54 BP 140 / 93; Pulse 100; Resp 18; Temp 97.7; Pulse Ox 100% ; Pain 0/10; bm8 18:58 Body Mass Index 22.60 (63.50 kg, 167.64 cm) bm8 18:58 Pain Scale: Adult bm8 19:54 Pain Scale: Adult bm8 Lokesh Coma Score: 19:54 Eye Response: spontaneous(4). Motor Response: obeys commands(6). Verbal Response: bm8 oriented(5). Total: 15. ED Course: 18:53 Patient arrived in ED. aa5 18:58 Vincenzo Adkins, RN is Primary Nurse. bm8 19:00 Javy Chavez MD is Attending Physician. rn 19:00 Triage completed. bm8 19:00 Arm band placed on right wrist. bm8 19:54 Patient has correct armband on for positive identification. Bed in low position. Call bm8 light in reach. Side rails up X 1. Adult w/ patient. Provided Education on: post er care. Client placed on continuous cardiac and pulse oximetry monitoring. NIBP monitoring applied. Pulse ox on. NIBP on. Door closed. Noise minimized. Diet tray given. PO fluids given. Verbal reassurance given. Head of bed elevated. 19:54 No provider procedures requiring assistance completed. Patient did not have IV access bm8 during this emergency room visit. Administered Medications: No medications were administered Medication: 19:54 VIS not applicable for this client. bm8 Point of Care Testing: Blood Glucose: 19:00 Blood Glucose: 109 mg/dL; bm8 Ranges: Outcome: 19:58 Discharge ordered by . rn 20:01 Discharged to home via wheelchair, bm8 20:01 Condition: good 20:01 Discharge instructions given to patient, family, Instructed on discharge instructions, follow up and referral plans. medication usage, safety practices, Demonstrated understanding of instructions, follow-up care, medications, 20:08 Patient left the ED. bm8 Signatures: Javy Chavez MD MD rn Calderon, Audri RN RN [facility] Vincenzo Adkins, RN RN bm8 Corrections: (The following items were deleted from the chart) 20:02 19:54 [facility] ED Fall Risk Assessment (Adult) History of falling in the last 3 months, bm8 including since admission No falls in past 3 months (0 pts) Confusion or Disorientation No (0 pts) Intoxicated or Sedated No (0 pts) Impaired Gait No (0 pts) Mobility Assist Device Used No (0 pt) Altered Elimination No (0 pt) Score/Fall Risk Level 0 - 2 = Low Risk Oriented to surroundings, Maintained a safe environment, Educated pt \T\ family on fall prevention, incl call for assistance when getting out of bed, Assessed \T\ reinforced patient's understanding of fall precautions, Hourly rounding (assess needs \T\ fall precautionary measures) done, Used ambulatory aids as needed (educated on \T\ assisted with), Used gait belt as appropriate bm8
[2024-11-30 08:32] VITALS: TEMP 97.7
[2024-11-30 08:33] VITALS: BP 140/93; O2SAT 100
== END 2024-11-29 20:08 | disposition home or self-care (01) ==
LOC: ER 18:50
DX: E11.649 Type 2 diabetes mellitus with hypoglycemia without coma (principal)
CPT/HCPCS: 82947; 99284

== ENCOUNTER 2025-02-19 18:09 | Emergency (ER) | payer OTHER ==
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
[2025-02-19] MEDS ORDERED: NA CHLORIDE 0.9% 1,000 ML ONE (19:53)
[2025-02-19 20:06] LABS: Absolute Basophils 0.1 K/uL (0-0.5); Absolute Eosinophils 0.1 K/uL (0-0.5); Absolute Lymphocytes (CBC) 1.8 K/uL (0.7-4.9); Absolute Monocytes 0.6 K/uL (0.1-1.3); Absolute Neutrophil 5.4 K/uL (1.8-8.0); Basophils % 0.7 % (0-1.3); Eosinophils % 0.7 % (0-4.4); Hematocrit 40.6 % (39.6-49.0); Hemoglobin 14.5 g/dL (13.6-17.9); Lymphocytes % 22.9 % (15.3-44.8); MCHC 35.8 g/dL (32.0-36.0); MPV 7.2 fL (7.6-11.3); Monocytes % 7.5 % (3.3-12.3); Neutrophils % 68.2 % (41.7-73.7); Platelets 253 thou/uL (152-406); RBC Red Blood Cell Count 4.27 M/uL (4.33-5.43)
[2025-02-19 20:25] LABS: Albumin 3.5 g/dL (3.4-5.0); Albumin/Globulin Ratio 0.8 (1.1-1.8); Anion Gap 9.1 mEq/L (5.0-15.0); Bilirubin Total 0.4 mg/dL (0.2-1.0); Globulin 4.2 g/dL (2.3-3.5); Potassium 4.1 mEq/L (3.5-5.1); Protein, Total 7.7 g/dL (6.4-8.2)
--- NOTE | 2025-02-19 20:31 | RAD REPORT ---
EXAMINATION: XR LEFT SHOULDER CLINICAL INDICATION: Male, 79 years old. PAIN TECHNIQUE: Internal and external AP view radiograph of the left shoulder were obtained. COMPARISON: 08/12/2020 FINDINGS: No evidence of fracture or dislocation. Normal alignment. No evidence of arthropathy or oth er focal bone lesion. Soft tissues are unremarkable. IMPRESSION: No acute or significant abnormalities.
--- NOTE | 2025-02-19 20:41 | ER ---
Nurse's Notes [facility] Name: Cristobal Napier Age: 79 yrs Sex: Male : 1945 Arrival Date: 02/19/2025 Time: 18:09 Bed 17 Private MD: Diagnosis: Type 2 diabetes mellitus with hyperglycemia;Other sprain of left shoulder joint Presentation: 02/19 18:10 Chief complaint: EMS states: family checked his BS and it was high, wanted him to get iw checked out, has been having trouble getting his insulin, he also stated he fell two days ago and his left shoulder hurts. Coronavirus screen: At this time, the client does not indicate any symptoms associated with coronavirus-19. Ebola Screen: No symptoms or risks identified at this time. Initial Sepsis Screen: Does the patient meet any 2 criteria? No. Patient's initial sepsis screen is negative. Does the patient have a suspected source of infection? No. Patient's initial sepsis screen is negative. Risk Assessment: Do you want to hurt yourself or someone else? Patient reports no desire to harm self or others. Onset of symptoms was February 19, 2025. Care prior to arrival: Glucose check: 477. 18:10 Method Of Arrival: EMS: [facility] iw 18:10 Acuity: LEO 3 iw Historical: - Allergies: 18:12 No Known Allergies; iw - PMHx: 18:12 Diabetes - NIDDM; Hypertensive disorder; iw 18:18 Dementia; me1 - PSHx: 18:18 Appendectomy; Cholecystectomy; me1 - Immunization history:: Adult Immunizations up to date. - Infectious Disease History:: Denies. - Social history:: Smoking status: Patient reports the use of cigarette tobacco products, smokes one pack cigarettes per day. Screenin:40 [facility] ED Fall Risk Assessment (Adult) History of falling in the last 3 months, jj7 including since admission Yes- single mechanical fall (1 pt) Confusion or Disorientation No (0 pts) Intoxicated or Sedated No (0 pts) Impaired Gait Yes (1 pt) Mobility Assist Device Used Yes (1 pt) Altered Elimination Yes (1 pt) Score/Fall Risk Level 3 or more points = High Risk Oriented to surroundings, Maintained a safe environment, Educated pt \T\ family on fall prevention, incl call for assistance when getting out of bed, Assessed \T\ reinforced patient's understanding of fall precautions. Abuse screen: Denies threats or abuse. Nutritional screening: No deficits noted. Tuberculosis screening: No symptoms or risk factors identified. Assessment: 19:40 General: Appears in no apparent distress. comfortable, Behavior is calm, cooperative, jj7 appropriate for age. Pain: Complains of pain in anterior aspect of left shoulder. Neuro: Reports weakness GENERALIZED. Musculoskeletal: Reports pain in anterior aspect of left shoulder PT FELL YESTERDAY ON HIS LEFT SIDE AND IS NOW HAVING LEFT SHOULDER PAIN. 19:40 Reassessment: ASSUMED CARE OF PT. FAMILY AND TECH CLEANING AND CHANGING PT OF jj7 INCONTINENCE. VS STABLE. Vital Signs: 18:10 BP 116 / 74; Pulse 91; Resp 18; Temp 98; Pulse Ox 96% on R/A; iw 20:00 BP 114 / 66; Pulse 78; Resp 17; Pulse Ox 99% ; jj7 20:48 BP 115 / 58; Pulse 64; Resp 17; Pulse Ox 98% ; jj7 21:11 BP 129 / 54; Pulse 67; Resp 20; Temp 97.7; Pulse Ox 99% ; jj7 ED Course: 18:10 Patient arrived in ED. iw 18:12 Triage completed. iw 18:12 Giulia Qiu PA-C is PHCP. sb4 18:12 John Parker MD is Attending Physician. sb4 18:19 Arm band placed on Patient placed in waiting room. me1 19:29 Shoulder Left (2 View) XRAY In Process Unspecified. EDMS 19:37 Erika Alfaro, RN is Primary Nurse. jj7 19:40 Patient has correct armband on for positive identification. Placed in gown. Bed in low jj7 position. Call light in reach. Side rails up X2. Adult w/ patient. Provided Education on: USE OF CALL [place]. Warm blanket given. 19:55 Inserted saline lock: 20 gauge in right antecubital area, using aseptic technique. jj7 Blood collected. Flushed with 10 mL NS. 19:57 CBC with Diff Sent. jj7 19:57 CMP Sent. jj7 19:57 Lipase Sent. jj7 21:10 Sling applied to left arm. jj7 21:21 No provider procedures requiring assistance completed. IV discontinued, intact, jj7 bleeding controlled, No redness/swelling at site. Pressure dressing applied. Administered Medications: 20:00 Drug: NS 0.9% IV 1000 ml IV at 1 bolus Per protocol; to be given as a bolus over 60 jj7 minutes Route: IV; Rate: 1 bolus; Site: right antecubital; 21:04 Follow up: IV Status: Completed infusion jj7 21:02 Drug: Acetaminophen PO 1000 mg PO once Route: PO; jj7 21:19 Follow up: Response: No adverse reaction jj7 Medication: 19:40 VIS not applicable for this client. jj7 Outcome: 20:41 Discharge ordered by . sb4 21:10 Discharged to home via wheelchair, with significant other, jj7 21:10 Condition: good 21:10 Discharge instructions given to patient, significant other, Instructed on discharge instructions, follow up and referral plans. Demonstrated understanding of instructions, follow-up care, 21:22 Patient left the ED. jj7 Signatures: Dispatcher [employer] Victorina Keene RN RN iw Johnson, Juwairiyah, RN RN jj7 Brown, Sophia, PA-C PA-C sb4 Shreya Osorio RN RN me1 Corrections: (The following items were deleted from the chart) 18:19 18:18 PSHx: None; me1 me1 20:45 19:40 General: Appears in no apparent distress. comfortable, Behavior is calm, jj7 cooperative, appropriate for age, jj7
--- NOTE | 2025-02-19 20:41 | EDPHYS ---
Physician Documentation [facility] Name: Cristobal Napier Age: 79 yrs Sex: Male : 1945 Arrival Date: 02/19/2025 Time: 18:09 Bed 17 Private MD: ED Physician John Parker HPI: 02/19 20:42 This 79 yrs old Male presents to ER via EMS with complaints of High Blood sb4 Sugar. 20:42 Daughter called EMS because she checked his blood sugar and it was high. Patient has no sb4 complaints, other than pain in his left shoulder secondary to a fall yesterday. [facility] which he reports compliance with. Last saw them 2 weeks ago. Historical: - Allergies: 18:12 No Known Allergies; iw - PMHx: 18:12 Diabetes - NIDDM; Hypertensive disorder; iw 18:18 Dementia; me1 - PSHx: 18:18 Appendectomy; Cholecystectomy; me1 - Immunization history:: Adult Immunizations up to date. - Infectious Disease History:: Denies. - Social history:: Smoking status: Patient reports the use of cigarette tobacco products, smokes one pack cigarettes per day. ROS: 20:43 Constitutional: Negative for fever, chills, and weight loss, sb4 20:43 MS/extremity: Positive for injury or acute deformity, pain, of the anterior aspect of left shoulder, 20:43 All other systems are negative, Exam: 20:45 Constitutional: This is a well developed, well nourished patient who is awake, alert, sb4 and in no acute distress. Head/Face: Normocephalic, atraumatic. Eyes: Extra-ocular motions intact. Periorbital areas with no swelling, redness, or edema. ENT: Mucous membranes moist. Cardiovascular: Regular rate and rhythm with a normal S1 and S2. Respiratory: No increased work of breathing, no retractions or nasal flaring. Abdomen/GI: Soft, non-tender, no distension. 20:45 Musculoskeletal/extremity: Joints: the left shoulder displays pain at rest, painful range of motion, Vital Signs: 18:10 BP 116 / 74; Pulse 91; Resp 18; Temp 98; Pulse Ox 96% on R/A; iw 20:00 BP 114 / 66; Pulse 78; Resp 17; Pulse Ox 99% ; jj7 20:48 BP 115 / 58; Pulse 64; Resp 17; Pulse Ox 98% ; jj7 21:11 BP 129 / 54; Pulse 67; Resp 20; Temp 97.7; Pulse Ox 99% ; jj7 MDM: 18:14 Medical Screening Exam initiated sb4 20:46 Differential diagnosis: DKA, hyperglycemia, hypoglycemic episode. Data reviewed: vital sb4 signs, nurses notes, EMS record, lab test result(s), radiologic studies, and as a result, I will discharge patient. Historians other than the Patient: Spouse/Significant Other: . Care significantly affected by the following chronic conditions: Diabetes, Hypertension. 02/19 18:15 Order name: CBC with Diff; Complete Time: 20:09 sb4 02/19 18:15 Order name: CMP; Complete Time: 20:25 sb4 02/19 18:15 Order name: Lipase; Complete Time: 20:25 sb4 02/19 20:04 Order name: Glucose, Ancillary Testing; Complete Time: 20:04 EDMS 02/19 18:15 Order name: Shoulder Left (2 View) XRAY; Complete Time: 20:32 sb4 02/19 18:15 Order name: IV Saline Lock; Complete Time: 19:57 sb4 02/19 18:15 Order name: Labs collected and sent; Complete Time: 19:57 sb4 02/19 20:32 Order name: Accucheck; Complete Time: 20:44 sb4 02/19 20:40 Order name: Shoulder Immobilizer; Complete Time: 21:02 sb4 Administered Medications: 20:00 Drug: NS 0.9% IV 1000 ml IV at 1 bolus Per protocol; to be given as a bolus over 60 jj7 minutes Route: IV; Rate: 1 bolus; Site: right antecubital; 21:04 Follow up: IV Status: Completed infusion jj7 21:02 Drug: Acetaminophen PO 1000 mg PO once Route: PO; jj7 21:19 Follow up: Response: No adverse reaction jj7 Disposition Summary: 02/19/25 20:41 Discharge Ordered Notes: Location: Home sb4 Problem: new sb4 Symptoms: have improved sb4 Condition: Stable sb4 Diagnosis - Type 2 diabetes mellitus with hyperglycemia sb4 - Other sprain of left shoulder joint sb4 Followup: sb4 - With: Private Physician - When: 1 week - Reason: Recheck today's complaints, Re-evaluation by your physician Discharge Instructions: - Discharge Summary Sheet sb4 - Blood Glucose Monitoring, Adult sb4 - Shoulder Sprain sb4 Forms: - Patient Portal Instructions sb4 - Leadership Thank You Letter sb4 Addendum: 02/21/2025 16:36 Co-signature as Attending Physician, John Parker MD I agree with the assessment and c gregory plan of care. Signatures: Dispatcher [employer] EDJohn Haines MD MD cha Williams, Irene, RN RN Erika Mckeon RN RN Giulia Renae, PA-C PA-C sb4 Shreya Osorio, RN RN me1 Corrections: (The following items were deleted from the chart) 02/19 18:15 18:15 Shoulder Left 2 View+RAD.RAD.BRZ ordered. EDMS EDMS 18:15 18:15 CBC+H.LAB.BRZ ordered. EDMS EDMS 18:15 18:15 COMPREHENSIVE METABOLIC PANEL+C.LAB.BRZ ordered. EDMS EDMS 18:15 18:15 LIPASE+C.LAB.BRZ ordered. EDMS EDMS 18:19 18:18 PSHx: None; me1 me1 20:43 20:42 Daughter called EMS because she checked his blood sugar and it was high. Patient sb4 has no complaints, other than pain in his. sb4
[2025-02-19] MEDS ORDERED: ACETAMINOPHEN 500 MG TAB ONE (20:52)
[2025-02-19 21:32] VITALS: BP 129/54; TEMP 97.7; O2SAT 99
== END 2025-02-19 21:22 | disposition home or self-care (01) ==
LOC: ER 18:09
DX: E11.65 Type 2 diabetes mellitus with hyperglycemia (principal); S43.492A Other sprain of left shoulder joint, initial encounter; I10 Essential (primary) hypertension; F17.210 Nicotine dependence, cigarettes, uncomplicated
CPT/HCPCS: 85025; 36415; 82947; 83690; 80053; 73030; J7030; 96360; 99284

== ENCOUNTER 2025-05-29 15:31 | Emergency (ER) | payer OTHER ==
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
[2025-05-29] MEDS ORDERED: HYDROCODONE/APAP 5/325 MG TAB ONE (16:22)
--- NOTE | 2025-05-29 17:09 | RAD REPORT ---
EXAM: Knee Right 3 View INDICATION: PAIN COMPARISON: None FINDINGS: No acute fracture. Deformity at the distal femur possibly from a remote, healed fracture. Shrapnel pr esent. Small nonspecific knee effusion. Moderate medial and lateral compartment narrowing with spurring. Other: Peripheral vascular calcifications. IMPRESSION: No acute osseous abnormality involving the imaged knee. Chronic findings as noted above.
--- NOTE | 2025-05-29 17:10 | RAD REPORT ---
EXAM: Knee Left 3 View INDICATION: PAIN COMPARISON: None FINDINGS: No acute fracture. Trace knee effusion. Mild medial lateral compartment narrowing. Other: Peripheral vascular calcifications. IMPRESSION: No acute osseous abnormality involving the imaged knee.
--- NOTE | 2025-05-29 17:10 | RAD REPORT ---
EXAMINATION: Shoulder Left 2+ Views CLINICAL INDICATION: Male, 79 years old. PAIN COMPARISON: No prior exam. FINDINGS: No acute fracture. Remote left clavicle fracture. No malalignment/dislocation. No significant focal degenerative change. Other: n/a IMPRESSION: No acute osseous abnormality.
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
[2025-05-29 19:27] VITALS: TEMP 98.2
[2025-05-29 19:30] VITALS: BP 152/83; O2SAT 100
== END 2025-05-29 18:21 | disposition home or self-care (01) ==
LOC: ER 15:31
DX: S80.212A Abrasion, left knee, initial encounter (principal); M25.512 Pain in left shoulder; W01.0XXA Fall on same level from slipping, tripping and stumbling without subsequent striking against object, initial encounter; F17.210 Nicotine dependence, cigarettes, uncomplicated
CPT/HCPCS: 99283

== ENCOUNTER 2025-08-02 19:50 | Emergency (ER) | payer OTHER ==
--- NOTE | 2025-08-02 20:48 | RAD REPORT ---
EXAMINATION: CT HEAD WITHOUT CONTRAST CT CERVICAL SPINE WITHOUT CONTRAST CLINICAL INDICATION: Head and neck injury status post fall. Head and neck pain TECHNIQUE: Axial CT images from the skull base to the vertex without intravenous contrast. Axial CT i mages through the cervical spine were obtained without intravenous contrast. Sagittal and coronal reformatted images were created from the data set. Coronal and sagittal reformatted images were creat ed from the data set. One or more of the following dose reduction techniques were used: Automated exposure control, adjustment of the mA and/or kV according to patient size, and/or iterative reconstr uction. Unless otherwise specified, incidental findings do not require dedicated imaging follow-up. [id number]. Comparison: 2023 FINDINGS: An intracranial bleed is not seen. Ventricles are normal in caliber. Small low-density right frontal lobe white matter has the appearance of an old infarct. Mild low-dens ity within periventricular, deep and subcortical white matter probably ischemic changes secondary to small vessel disease. No extra-axial fluid collection. No fluid within the sinuses/mastoids No fracture or dislocation is seen involving the cervical spine. Mild chronic posterior subluxation C 4 on C5. 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 If the patient continues to have symptoms to suggest acute POLITICAL SCIENTIST/spinal pathology then MRI would be rec ommended
--- NOTE | 2025-08-02 20:49 | RAD REPORT ---
Exam:Shoulder Right 2+ Views History: Right shoulder pain Findings: No acute fracture or dislocation seen. Old right rib fractures.
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
[2025-08-02] MEDS ORDERED: ACETAMINOPHEN 500 MG TAB ONE (21:09)
[2025-08-02 21:37] VITALS: BP 127/92; TEMP 97.8
[2025-08-02 21:38] VITALS: O2SAT 100
== END 2025-08-02 21:19 | disposition home or self-care (01) ==
LOC: ER 19:50
DX: S00.83XA Contusion of other part of head, initial encounter (principal); M25.511 Pain in right shoulder; R51.9 Headache, unspecified; W01.0XXA Fall on same level from slipping, tripping and stumbling without subsequent striking against object, initial encounter
CPT/HCPCS: 70450; 72125; 99284